=== PATIENT | female | born 1955 | race Hispanic/Latino ===

== ENCOUNTER 2020-08-25 17:27 | Emergency (ER) | payer MEDICARE, OTHER ==
[~2020-08-25] VITALS: Ht 162.6 cm; Wt 72.6 kg
[2020-08-25] MEDS ORDERED: CIPROFLOXACIN 400 MG/D5W 200ML 200 ML IV STA (17:30)
--- NOTE | 2020-08-25 17:32 | Emergency Department Note ---
History of Present Illnes History of Present Illness History of Present Illness This is a 65 year old female brought by daughter for evaluation of dysuria. Patient seen by multiple clinics and has had Rx for macrobid and pyridium Historian: Patient, Family Member Arrival Mode: Car Onset (how long ago): week(s) (1) Radiation: Reports abdomen (suprapubic) Severity: moderate Duration (how long): week(s) (1) Timing of current episode: constant Progression: worsening Chronicity: new Context: Denies recent illness, Denies recent surgery, Denies recent immobilization, Denies recent travel, Denies trauma/injury, Denies new medica tions, Denies hx of DVT/PE, Denies non-compliance w/ medications, Denies other Exacerbating factors: other (palpation) Associated symptoms: Denies denies other symptoms, Denies confusion, Denies chest pain, Denies cough, Denies diaphoresis, Denies fever/chills, Denies headaches, Denies loss of appetite, Denies malaise, Denies nausea/vomiting, Denies rash, Denies seizure, Denies shortness of breath, Denies syncope, Denies weakness, Denies other Previous service: medications given, tests performed Past Medical/Family History Physician Review I have reviewed the patient's past medical and family history. Any updates have been documented here. Past Medical History Recent Fever: No Clinical Suspicion of Infectio: No New/Unexplained Change in Ment: No Past Medical History: Hyperlipedemia Past Surgical History: Hysterectomy Social History Smoking Cessation: Never Smoker Alcohol Use: None Any Illegal Drug Use: No Review of Systems Review of Systems Constitutional: Reports no symptoms EENTM: Reports no symptoms Cardiovascular: Reports no symptoms Respiratory: Reports no symptoms Gastrointestinal: Reports abdominal pain (LLQ) Genitourinary: Reports discharge, Reports dysuria, Reports frequency Musculoskeletal: Reports no symptoms Integumentary: Reports no symptoms Neurological: Reports no symptoms Psychological: Reports no symptoms Endocrine: Reports no symptoms Hematological/Lymphatic: Reports no symptoms Physical Exam Related Data Allergies: Coded Allergies: No Known Allergies (Unverified , 08/25/20) Physical Exam CONSTITUTIONAL Constitutional: Present well-developed, Present well-nourished HENT HENT: Present normocephalic, Present atraumatic, Present oropharynx clear/m oist, Present nose normal HENT L/R: Present left ext ear normal, Present right ext ear normal EYES Eyes: Reports PERRL, Reports conjunctivae normal NECK Neck: Present ROM normal PULMONARY Pulmonary: Present effort normal, Present breath sounds normal CARDIOVASCULAR Cardiovascular: Present regular rhythm, Present heart sounds normal, Present capillary refill normal, Present normal rate GASTROINTESTINAL Abdominal: Present soft, Present tender (LLQ) GENITOURINARY Genitourinary: Present exam deferred SKIN Skin: Present warm, Present dry MUSCULOSKELETAL Musculoskeletal: Present ROM normal NEUROLOGICAL Neurological: Present alert, Present oriented x 3, Present no gross motor or sensory deficits PSYCHOLOGICAL Psychological: Present mood/affect normal, Present judgement normal Results Laboratory Lab results reviewed: Yes Laboratory comments Laboratory Tests Test 08/25/20 17:49 08/25/20 17:45 White Blood Count 6.70 x10e3/uL (4.8-10.8) Red Blood Count 4.55 x10e6/uL (3.6-5.1) Hemoglobin 13.2 g/dL (12.0-16.0) Hematocrit 41.2 % (34.2-44.1) Mean Corpuscular Volume 90.5 fL (81-99) Mean Corpuscular Hemoglobin 29.0 pg (28-32) Mean Corpuscular Hemoglobin Concent 32.0 g/dL (31-35) Red Cell Distribution Width 13.0 % (11.7-14.4) Platelet Count 241 x10e3/uL (140-360) Neutrophils (%) (Auto) 66.9 % (38.7-80.0) Lymphocytes (%) (Auto) 23.6 % (18.0-39.1) Monocytes (%) (Auto) 7.8 % (4.4-11.3) Eosinophils (%) (Auto) 0.7 % (0.0-6.0) Basophils (%) (Auto) 0.7 % (0.0-1.0) Neutrophils # (Auto) 4.5 (2.1-6.9) Lymphocytes # (Auto) 1.6 (1.0-3.2) Monocytes # (Auto) 0.5 (0.2-0.8) Eosinophils # (Auto) 0.1 (0.0-0.4) Basophils # (Auto) 0.1 (0.0-0.1) Absolute Immature Granulocyte (auto 0.02 x10e3/uL (0-0.1) Urine Color Yellow (YELLOW) Urine Clarity Hazy (CLEAR) Urine pH 5.5 (5 - 7) Urine Specific Bradley >=1.030 (1.010-1.025) Urine Protein Negative (NEGATIVE) Urine Glucose (UA) Negative (NEGATIVE) Urine Ketones Negative (NEGATIVE) Urine Blood Trace (NEGATIVE) Urine Nitrite Positive (NEGATIVE) Urine Bilirubin Negative (NEGATIVE) Urine Urobilinogen 0.2 mg/dL (0.2 - 1) Urine Leukocyte Esterase Negative (NEGATIVE) Urine RBC 6-10 /HPF (0-5) Urine WBC 6-10 /HPF (0-5) Urine Epithelial Cells Few /LPF (NONE) Urine Bacteria Few /HPF (NONE) Sodium Level 138 mmol/L (136-145) Potassium Level 3.9 mmol/L (3.5-5.1) Chloride Level 106 mmol/L (98-107) Carbon Dioxide Level 23 mmol/L (22-29) Anion Gap 12.9 mmol/L (8-16) Blood Urea Nitrogen 15 mg/dL (7-26) Creatinine 0.88 mg/dL (0.57-1.11) Estimat Glomerular Filtration Rate > 60 ML/MIN (60-) BUN/Creatinine Ratio 17 (6-25) Glucose Level 107 mg/dL (74-118) Calcium Level 8.8 mg/dL (8.4-10.2) Total Bilirubin 0.4 mg/dL (0.2-1.2) Aspartate Amino Transf (AST/SGOT) 16 IU/L (5-34) Alanine Aminotransferase (ALT/SGPT) 11 IU/L (0-55) Alkaline Phosphatase 99 IU/L (40-150) Total Protein 7.6 g/dL (6.5-8.1) Albumin 4.0 g/dL (3.5-5.0) Globulin 3.6 g/dL (2.3-3.5) Albumin/Globulin Ratio 1.1 (0.8-2.0) Bedside Glucose 99 mg/dL (70-120) Imaging Imaging results reviewed: Yes Impressions [place] [address] Patient Name: CLAUDETTE WHITE MR #: [id number] : 1955 Age/Sex: 65/F Req #: [id number] Adm Physician: Ordered by: FER KEITH DO Report #: [id number] Location: ER Room/Bed: Procedure: [id number] CT/CT CHEST W Exam Date: 08/25/20 Exam Time: 1903 REPORT STATUS: Signed EXAM: CT PE Chest, Abdomen and Pelvis WITH contrast INDICATION: ^suprapubic pain ^[id number] ^1903 COMPARISON: None. TECHNIQUE: Chest, abdomen and pelvis were scanned utilizing a multidetector helical scanner from the lung apex to the pubic symphysis after administration of IV contrast. Coronal and sagittal reformations were obtained. Routine protocol was performed. Scan was performed when during portal venous phase. The protocol performed for chest and arterial phase. Portal venous phase for abdomen and pelvis. IV CONTRAST: 100 mL of Isovue 370 ORAL CONTRAST: None COMPLICATIONS: None FINDINGS: LINES and TUBES: None. LUNGS AND AIRWAYS: 7 mm groundglass nodule in the left upper lobe, series 2, image 56. No consolidation. Airways are normal. PLEURA: The pleural spaces are clear. HEART AND MEDIASTINUM: No mediastinal, hilar or axillary lymphadenopathy. The heart is normal in size. There is no pericardial effusion. HEPATOBILIARY: There are multiple scattered too small to characterize hypodensities in the liver, likely benign. No biliary ductal dilation. GALLBLADDER: No radio-opaque stones or sludge. No wall thickening. SPLEEN: No splenomegaly. PANCREAS: No focal masses or ductal dilatation. ADRENALS: No adrenal nodules KIDNEYS/URETERS: Kidneys enhance symmetrically. No hydronephrosis. No cystic or solid mass lesions. No stones. GI TRACT: No abnormal distention, wall thickening, or evidence of bowel obstruction. Appendix is normal. PELVIC ORGANS/BLADDER: Unremarkable. LYMPH NODES: No lymphadenopathy. VESSELS: Unremarkable. PERITONEUM / RETROPERITONEUM: No free air or fluid. BONES: There are degenerative changes in the spine. SOFT TISSUES: Unremarkable. IMPRESSION: 1. No pulmonary emboli. 2. No acute process in the chest, abdomen, and pelvis. 3. 7 mm groundglass nodule in the left upper lobe. Recommend follow-up low-dose chest CT in 6 months. Signed by: Cristino Cason MD on 08/25/2020 7:53 PM Dictated By: CRISTINO CASON MD 51 Transcribed By: AFRICA on 08/25/201952 COPY TO: FER KEITH DO~ Assessment & Plan Medical Decision Making MDM Diff Dx : UTI, pyelonephritis, Cancer, kidney stone, COVID-19 URi, PE patient with oxygen saturation of 93% on RA, considered pulmonary embolus and atypical presentation for COVID-19 infection Assessment & Plan Final Impression: (1) UTI (urinary tract infection) (2) Hypoxia FER KEITH DO Aug 25, 2020 17:32
--- OUTSIDE RECORDS SUMMARY | 2020-08-25 17:59 | XMS REPORT | Continuity of Care Document ---
Author Author Masterseek ExchangeCLAUDETTE ESCAPESwithYOU Information [place] Address Unknown Phone Unavailable Care Team Providers Care Extrusion Engineer Name Role Phone ESCAPESwithYOU Information Exchange Unavailable Un available Problems Problem Status Onset Date Classification Date Reported Comments Source Headache 03/27/2018 [facility] CHRONIC HEADACHE Active 12/08/2017 [facility] MENOPAUSAL STATE Active 01/21/2016 [facility] Impaired glucose tolerance (disorder) Active 04/23/2015 Problem 01/31/2016 Data migrated from [facility] on . [facility] OTHER SCREENING MAMMOGRAM Acti ve 04/23/2015 Condition 04/25/2015 [facility] PREDIABETES Active 04/23/2015 Condition 04/25/2015 [facility] PREVENTIVE HEALTH CARE Active 02/09/2015 Condition 04/25/2015 [facility] SCREENING FOR COLON CANCER Act reji 02/09/2015 Condition 04/25/2015 [facility] SCREENING FOR GLAUCOMA Active 02/09/2015 Condition 04/25/2015 [facility] BODY MASS INDEX 26.0-26.9, ADULT Active 02/09/2015 Condition 04/25/2015 [facility] SKIN LESION Inactive 12/04/2014 Condition 04/25/2015 [facility] 599.72 HEMATURIA, MICROSCOPIC 236.91 MES Active 09/15/2014 [facility] URINARY URGENCY Inactive 08/15/2014 Condition 04/25/2015 [facility] Vitamin D deficiency (disorder) Active 08/01/2014 Problem 10/03/2019 Data migrated from [facility] on 03/03. [facility] Renal mass (finding) Active 08/01/2014 Problem 01/31/2016 Data migrated from [facility] on 03/03. [facility] Steatosis of liver (disorder) Active 08/01/2014 Problem 01/31/2016 Data migrated from [facility] on 03/03. [facility] MICROSCOPIC HEMATURIA Active 08/01/2014 Condition 04/25/2015 [facility] FATTY LIVER Active 08/01/2014 Condition 04/25/2015 [facility] RENAL CYST Active 08/01/2014 Condition 04/25/2015 [facility] VITAMIN D DEFICIENCY Active 08/01/2014 Condition 04/25/2015 [facility] Impaired fasting glycaemia (disorder) Active 02/17/2014 Problem 01/31/2016 Data migrated from [employer] on 03/03. [facility] IMPAIRED FASTING GLUCOSE Inact reji 02/17/2014 Condition 04/25/2015 [facility] 627.9MENOPAUSAL AND POSTMENOPAUSAL DISOR Active 01/27/2014 [facility] PHYSICAL EXAMINATION Inactive 01/20/2014 Condition 04/25/2015 [facility] SCREENING, COLON CANCER Active 01/20/2014 Condition 04/25/2015 [facility] 789.00=ABDOMINAL PAIN Active 07/12/2013 [facility] MIGRAINE HEADACHE Active 06/24/2013 Condition 04/25/2015 [facility] ABDOMINAL PAIN Inactive 06/24/2013 Condition 04/25/2015 [facility] Gastritis (disorder) Resolved 10/05/1959 Problem 10/03/2019 Data migrated from [employer] on . Data migrated from [employer] on 03/06/15. [facility] Gastroesophageal reflux disease (disorder) Active 10/05/1959 Problem 10/03/2019 Data migrated from [employer] on 04/11/15. Data migrated from [employer] on 03/06/15. [facility] Hyperlipidemia (disorder) Acti ve 10/05/1959 Problem 04/02/2018 Data migrated from [employer] on 03/03. [facility] HYPERLIPIDEMIA Active 10/05/1959 Condition 04/25/2015 [facility] GASTRITIS Active 10/05/1959 Condition 08/15/2014 [facility] GERD Active 10/05/1959 Condition 04/25/2015 [facility] Acute bronchitis (disorder) Re solved Problem Data migrated from [employer] on 04/21. [facility] Acute gastritis (disorder) Res olved Problem Data migrated from [employer] on 04/21. [facility] Acute sinusitis (disorder) Res olved Problem Data migrated from [employer] on 04/20. [facility] Chronic headache disorder (disorder) Active Problem [facility] Insomnia (disorder) Active Problem 10/03/2019 [facility] Prediabetes (finding) Active Problem 10/03/2019 [facility] Breast lump (finding) Active Problem 10/03/2019 [facility] Mammography abnormal (finding) Active Problem [facility] Mixed hyperlipidemia (disorder) Active Problem [facility] Hypertensive disorder, systemic arterial (disorder) Active Problem 03/12/2018 [facility] Simple obesity (disorder) Acti ve Problem [facility] Cerebral ischemia 03/27/2018 [facility] Chronic sinusitis, unspecified 03/27/2018 [facility] UNSPECIFIED MENOPAUSAL&POSTMENOPAUSAL DISORDER Inactive Condition 04/25/2015 [facility] ACUTE URIS OF UNSPECIFIED SITE Inactive Condition 0 04/25/2015 [facility] ACUTE BRONCHITIS Inactive Condition 04/25/2015 [facility] Medications Medication Details Route Status Patient Instructions Ordering Provider Order Date Source Vitamin D2 50,000 intl units oral capsule = 1 cap, PO, qWeek, # 12 unknown unit, Pharmacy: [facility]/pharmacy #6000 Active 06/14/2019 [facility] atorvastatin 20 mg oral tablet = 1 tab, PO, Bedtime, # 90 tab, Pharmacy: [facility]/pharmacy #6000 Active 06/14/2019 [facility] Ergocalciferol 22415 UNT Oral Capsule 50,000 IntlUnit = 1 cap, PO, qWeek, # 12 cap, 1 Refill(s), Pharmacy: [facility]/pharmacy #6000 Active 12/17/2018 [facility] Esomeprazole 40 MG Enteric Coated Capsule 40 mg = 1 cap, PO, Daily, # 90 cap, 0 Refill(s), Pharmacy: [facility]/pharmacy #6000 Active 03/29/2018 [facility] Trazodone Hydrochloride 50 MG Oral Tablet 50 mg = 1 tab, PO, Bedtime, with food, # 30 tab, 1 Refill(s), Pharmacy: [facility]/pharmacy #6000 Active 12/04/2017 [facility] losartan 25 mg oral tablet 25 mg = 1 tab, PO, Daily, # 30 tab, 1 Refill(s), Pharmacy: [facility]/pharmacy #6000 Active 12/04/2017 [facility] atorvastatin 20 mg oral tablet 20 mg = 1 tab, PO, Bedtime, # 90 tab, 1 Refill(s), Pharmacy: [facility]/pharmacy #6000 Active 08/21/2017 [facility] CALCIUM + VITAMIN D Take one t ablet by mouth daily. Active 02/09/2015 [facility] CIPROFLOXACIN HCL 500 MG TABS Take one tablet every 12 hours Active 08/15/2014 [facility] FEXOFENADINE HCL 180 MG TABS T karolyn one tablet by mouth once a day as needed No Longe r Active 08/15/2014 [facility] CIPROFLOXACIN HCL 500 MG TABS Take one tablet every 12 hours No Longer Active 08/15/2014 [facility] CIPROFLOXACIN HCL 500 MG TABS Take one tablet every 12 hours No Longer Active 08/15/2014 [facility] VITAMIN D 2000 UNIT CAPS Take one tablet by mouth once a day No Longer Active 08/04/2014 [facility] NEXIUM 40 MG CPDR 1 tab by wilder th daily as needed No Longer Active 06/24/2013 [facility] PATANOL 0.1 % SOLN 1 drop in b oth eyes every 12 hours No Longer Active 06/24/2013 [facility] ATORVASTATIN CALCIUM 10 MG TABS 1 tab by mouth at bedtime No Longer Active 06/24/2013 [facility] LIPITOR 10 MG TABS 1 tab by mo uth at bedtime Active 06/24/2013 [facility] NEXIUM 40 MG CPDR 1 tab by wilder th daily as needed No Longer Active 06/24/2013 [facility] ATORVASTATIN CALCIUM 10 MG TABS 1 tab by mouth at bedtime No Longer Active 06/24/2013 [facility] LIPITOR 10 MG TABS 1 tab by mo uth at bedtime Active 06/24/2013 [facility] NEXIUM 40 MG CPDR 1 tab by wilder th daily as needed No Longer Active 06/24/2013 [facility] CEFPROZIL 500 MG TABS 1 tab by mouth every 12 hours No Longer Active 03/01/2013 [facility] ALPRAZOLAM 0.25 MG TABS 1 tab by mouth daily as needed No Longer Active 03/01/2013 [facility] CEFPROZIL 500 MG TABS 1 tab by mouth every 12 hours No Longer Active 03/01/2013 [facility] ALPRAZOLAM 0.25 MG TABS 1 tab by mouth daily as needed No Longer Active 03/01/2013 [facility] ALPRAZOLAM 0.25 MG TABS 1 tab by mouth daily as needed No Longer Active 03/01/2013 [facility] Allergies, Adverse Reactions, Alerts Substance Category Reaction Severity Reaction type Status Date Reported Comments Source No Known Medication Allergies Assertion Drug aller gy [facility] Immunizations Immunization Date Given Site Status Last Updated Comments Source influenza virus vaccine, inactivated<sup>1</sup> 08/12/2018 Left Deltoid completed [facility] Result Comment: Patient waited in room ten mins no allergic reaction. [facility] influenza virus vaccine, inactivated<sup>1</sup> 08/06/2017 Left Deltoid completed [facility] Result Comment: Patient waited in room ten mins, no allergic reaction. [facility] influenza virus vaccine, inactivated<sup>2</sup> 08/06/2017 Left Deltoid completed [facility] Result Comment: Patient waited in room ten mins, no allergic reaction. [facility] influenza virus vaccine, inactivated 07/18/2016 Left Deltoid completed [facility]ios [facility] influenza virus vaccine, inactivated 07/25/2015 Left deltoid completed Aaron [facility] influenza immunization (Flu Vax) has been administered 08/01/2014 completed [facility] Hx influenza vaccine-unspecified<sup>3</sup> 08/01/2014 Left Deltoid completed GE Result Comment: fluzone (qu adrivalent) no preservative (>3 yrs.) [[id number]]. Migrated from OBS ; Data migrated from [employer] on 11/06/2015. [facility] Hx influenza vaccine-unspecified<sup>4</sup> 08/01/2014 Left Deltoid completed GE Result Comment: fluzone (qu adrivalent) no preservative (>3 yrs.) [[id number]]. Migrated from OBS ; Data migrated from [employer] on 11/06/2015. [facility] Hx influenza vaccine-unspecified<sup>1</sup> 08/01/2014 Left Deltoid completed GE Result Comment: fluzone (qu adrivalent) no preservative (>3 yrs.) [[id number]]. Migrated from OBS ; Data migrated from [employer] on 11/06/2015. [facility] pneumococcal immunization administered 01/20/2014 completed [facility] pneumococcal 23-valent vaccine<sup>4</sup> 01/20/2014 Left Deltoid completed GE Result Comment: pneumovax 2 3 [[id number]]. Migrated from OBS VIS: Pneumovax 23: 07/10/09 ; Data migrated from [employer] on 11/06/2015. [facility] pneumococcal 23-valent vaccine<sup>5</sup> 01/20/2014 Left Deltoid completed GE Result Comment: pneumovax 2 3 [[id number]]. Migrated from OBS VIS: Pneumovax 23: 07/10/09 ; Data migrated from [employer] on 11/06/2015. [facility] pneumococcal 23-valent vaccine<sup>3</sup> 01/20/2014 Left Deltoid completed GE Result Comment: pneumovax 2 3 [[id number]]. Migrated from OBS VIS: Pneumovax 23: 07/10/09 ; Data migrated from [employer] on 11/06/2015. [facility] influenza immunization (Flu Vax) has been administered 06/24/2013 completed [facility] influenza virus vaccine, inactivated<sup>2</sup> 06/24/2013 Right Deltoid completed GE Result Comment: fluzone (>3 yrs.) [[id number]]. Migrated from OBS ; Data migrated from [employer] on 11/06/2015. [facility] influenza virus vaccine, inactivated<sup>3</sup> 06/24/2013 Right Deltoid completed GE Result Comment: fluzone (>3 yrs.) [[id number]]. Migrated from OBS ; Data migrated from [employer] on 11/06/2015. [facility] influenza immunization (Flu Vax) has been administered 07/01/2012 completed [facility] influenza immunization (Flu Vax) has been administered 08/08/2011 completed [facility] influenza immunization (Flu Vax) has been administered 07/26/2010 completed [facility] influenza immunization (Flu Vax) has been administered 06/29/2009 completed [facility] influenza immunization (Flu Vax) has been administered 07/31/2008 completed [facility] influenza immunization (Flu Vax) has been administered 08/16/2007 [facility] Results Order Name Results Value Reference Range Date Interpretation Comments Source Chemistry HGBA1C 6.3 - 5.6 04/25/2015 [facility] Urinalysis UA COLOR Yellow 04/25/2015 [facility] Urinalysis BACTERIA URN Few 04/25/2015 [facility] Chemistry HEMOCCULT Negative 02/13/2015 [facility] Chemistry HEMOCCULT Negative 02/12/2015 [facility] Chemistry HEMOCCULT Negative 02/10/2015 [facility] Chemistry HGBA1C 6.5 - 5.6 02/09/2015 [facility] Chemistry TSH 1.200 0.360 - 3.740 02/09/2015 [facility] Chemistry CHOLESTEROL 200 - 199 02/09/2015 [facility] Chemistry TRIGLYCERIDE 255 - 149 02/09/2015 [facility] Chemistry HDL 35 >=61 02/09/2015 [facility] Chemistry LDL 114 - 99 02/09/2015 [facility] Chemistry SODIUM 142 MEQ/L 135 - 145 02/09/2015 [facility] Chemistry POTASSIUM 4.1 MEQ/L 3.5 - 5.1 02/09/2015 [facility] Chemistry CREATININE 0.8 0.5 - 1.4 02/09/2015 [facility] BUN 17 7 - 22 02/09/2015 [facility] Chemistry BUN/CREAT 21 6 - 25 02/09/2015 [facility] Chemistry ALBUMIN 3.9 3.5 - 5.0 02/09/2015 [facility] CALCIUM 8.8 8.5 - 10.5 02/09/2015 [facility] Chemistry SGPT (ALT) 33 0 - 65 02/09/2015 [facility] Chemistry SGOT (AST) 29 0 - 37 02/09/2015 [facility] Chemistry ALK PHOS 94 39 - 136 02/09/2015 [facility] Hematology HGB 13.1 12.0 - 16.0 02/09/2015 [facility] Hematology HCT 41.0 36.0 - 48.0 02/09/2015 [facility] Hematology PLATELETS 225 K/CMM 133 - 450 02/09/2015 [facility] Urinalysis UA COLOR Yellow 02/09/2015 [facility] Urinalysis BACTERIA URN Occas ional 02/09/2015 [facility] Urinalysis UA COLOR Yellow 02/09/2015 [facility] Urinalysis UA COLOR Yellow 02/09/2015 [facility] Urinalysis BACTERIA URN Occas ional 02/09/2015 [facility] Urinalysis UA COLOR Yellow 08/15/2014 [facility] Urinalysis BACTERIA URN Occas ional 08/15/2014 [facility] Urinalysis UA COLOR Yellow 08/15/2014 [facility] Urinalysis BACTERIA URN Occas ional 08/15/2014 [facility] Urinalysis UA COLOR Yellow 08/15/2014 [facility] Urinalysis BACTERIA URN Occas ional 08/15/2014 [facility] Urinalysis UA COLOR Yellow 08/15/2014 [facility] Urinalysis BACTERIA URN Occas ional 08/15/2014 [facility] Urinalysis UA COLOR Yellow 08/15/2014 [facility] Urinalysis UA COLOR Yellow 08/15/2014 [facility] Urinalysis UA COLOR Yellow 08/15/2014 [facility] Urinalysis BACTERIA URN Occas ional 08/15/2014 [facility] Urinalysis UA COLOR Yellow 08/15/2014 [facility] Urinalysis BACTERIA URN Occas ional 08/15/2014 [facility] Chemistry HGBA1C 6.3 - 5.6 08/01/2014 [facility] Chemistry CHOLESTEROL 216 - 199 08/01/2014 [facility] Chemistry TRIGLYCERIDE 271 - 149 08/01/2014 [facility] Chemistry HGBA1C 6.3 - 5.6 08/01/2014 [facility] Chemistry CHOLESTEROL 216 - 199 08/01/2014 [facility] Chemistry TRIGLYCERIDE 271 - 149 08/01/2014 [facility] Chemistry HDL 39 >=61 08/01/2014 [facility] Chemistry LDL 123 - 99 08/01/2014 [facility] Chemistry SODIUM 139 MEQ/L 135 - 145 08/01/2014 [facility] Chemistry POTASSIUM 4.0 MEQ/L 3.5 - 5.1 08/01/2014 [facility] Chemistry CREATININE 0.9 0.5 - 1.4 08/01/2014 [facility] Chemistry BUN 14 7 - 22 08/01/2014 [facility] Chemistry BUN/CREAT 16 6 - 25 08/01/2014 [facility] Chemistry ALBUMIN 4.0 3.5 - 5.0 08/01/2014 [facility] Chemistry CALCIUM 9.2 8.5 - 10.5 08/01/2014 [facility] Chemistry SGPT (ALT) 28 0 - 65 08/01/2014 [facility] Chemistry SGOT (AST) 21 0 - 37 08/01/2014 [facility] Chemistry ALK PHOS 103 39 - 136 08/01/2014 [facility] Chemistry SGOT (AST) 21 0 - 37 08/01/2014 [facility] Chemistry ALK PHOS 103 39 - 136 08/01/2014 [facility] Urinalysis UA COLOR Yellow 08/01/2014 [facility] Urinalysis BACTERIA URN Occas ional 08/01/2014 [facility] Urinalysis UA COLOR Yellow 08/01/2014 [facility] Urinalysis BACTERIA URN Occas ional 08/01/2014 [facility] Urinalysis UA COLOR Yellow 08/01/2014 [facility] Urinalysis UA COLOR Yellow 08/01/2014 [facility] Urinalysis BACTERIA URN Occas ional 08/01/2014 [facility] Urinalysis UA COLOR Yellow 08/01/2014 [facility] Urinalysis BACTERIA URN Occas ional 08/01/2014 [facility] Chemistry HEMOCCULT Negative 01/26/2014 [facility] Chemistry HEMOCCULT Negative 01/26/2014 [facility] Chemistry HEMOCCULT Negative 01/26/2014 [facility] Chemistry HEMOCCULT Negative 01/23/2014 [facility] Chemistry HEMOCCULT Negative 01/23/2014 [facility] Chemistry HEMOCCULT Negative 01/23/2014 [facility] Chemistry HEMOCCULT Negative 01/20/2014 [facility] Chemistry HEMOCCULT Negative 01/20/2014 [facility] Chemistry HEMOCCULT Negative 01/20/2014 [facility] Chemistry CHOLESTEROL 209 - 199 01/20/2014 [facility] Chemistry TRIGLYCERIDE 221 - 149 01/20/2014 [facility] Chemistry HDL 36 >=61 01/20/2014 [facility] Chemistry LDL 129 - 99 01/20/2014 [facility] Chemistry SODIUM 140 MEQ/L 135 - 145 01/20/2014 [facility] Chemistry POTASSIUM 3.8 MEQ/L 3.5 - 5.1 01/20/2014 [facility] Chemistry CREATININE 0.7 0.5 - 1.4 01/20/2014 [facility] Chemistry BUN 14 7 - 22 01/20/2014 [facility] Chemistry BUN/CREAT 20 6 - 25 01/20/2014 [facility] Chemistry ALBUMIN 3.9 3.5 - 5.0 01/20/2014 [facility] Chemistry CALCIUM 8.9 8.5 - 10.5 01/20/2014 [facility] Chemistry SGPT (ALT) 26 0 - 65 01/20/2014 [facility] Chemistry SGOT (AST) 18 0 - 37 01/20/2014 [facility] Chemistry ALK PHOS 120 39 - 136 01/20/2014 [facility] Chemistry TSH 2.080 0.360 - 3.740 01/20/2014 [facility] Chemistry CHOLESTEROL 209 - 199 01/20/2014 [facility] Chemistry TRIGLYCERIDE 221 - 149 01/20/2014 [facility] Chemistry HDL 36 >=61 01/20/2014 [facility] Chemistry ALK PHOS 120 39 - 136 01/20/2014 [facility] Chemistry TSH 2.080 0.360 - 3.740 01/20/2014 [facility] Hematology HGB 13.5 12.0 - 16.0 01/20/2014 [facility] Hematology HCT 40.4 36.0 - 48.0 01/20/2014 [facility] Hematology PLATELETS 228 K/CMM 133 - 450 01/20/2014 [facility] Urinalysis UA COLOR Yellow 01/20/2014 [facility] Urinalysis BACTERIA URN Occas ional 01/20/2014 [facility] Urinalysis UA COLOR Yellow 01/20/2014 [facility] Urinalysis BACTERIA URN Occas ional 01/20/2014 [facility] Urinalysis UA COLOR Yellow 01/20/2014 [facility] Urinalysis BACTERIA URN Occas ional 01/20/2014 [facility] Urinalysis UA COLOR Yellow 01/20/2014 [facility] Urinalysis UA COLOR Yellow 01/20/2014 [facility] Urinalysis BACTERIA URN Occas ional 01/20/2014 [facility] Chemistry CHOLESTEROL 207 - 199 06/24/2013 [facility] Chemistry TRIGLYCERIDE 262 - 149 06/24/2013 [facility] Chemistry HDL 35 >=61 06/24/2013 [facility] Chemistry LDL 120 - 99 06/24/2013 [facility] Chemistry SODIUM 143 MEQ/L 135 - 145 06/24/2013 [facility] Chemistry POTASSIUM 4.2 MEQ/L 3.5 - 5.1 06/24/2013 [facility] Chemistry CREATININE 0.7 0.5 - 1.4 06/24/2013 [facility] Chemistry BUN 16 7 - 22 06/24/2013 [facility] Chemistry BUN/CREAT 23 6 - 25 06/24/2013 [facility] Chemistry ALBUMIN 4.0 3.5 - 5.0 06/24/2013 [facility] Chemistry CALCIUM 9.0 8.5 - 10.5 06/24/2013 [facility] Chemistry SGPT (ALT) 32 0 - 65 06/24/2013 [facility] Chemistry SGOT (AST) 25 0 - 37 06/24/2013 [facility] Chemistry ALK PHOS 143 39 - 136 06/24/2013 [facility] Chemistry TSH 1.270 0.360 - 3.740 06/24/2013 [facility] Chemistry CHOLESTEROL 207 - 199 06/24/2013 [facility] Chemistry TRIGLYCERIDE 262 - 149 06/24/2013 [facility] Chemistry HDL 35 >=61 06/24/2013 [facility] Chemistry ALK PHOS 143 39 - 136 06/24/2013 [facility] Chemistry TSH 1.270 0.360 - 3.740 06/24/2013 [facility] Hematology HGB 13.6 12.0 - 16.0 06/24/2013 [facility] Hematology HCT 40.9 36.0 - 48.0 06/24/2013 [facility] Hematology PLATELETS 215 K/CMM 133 - 450 06/24/2013 [facility] Urinalysis UA COLOR Yellow 06/24/2013 [facility] Urinalysis UA COLOR Yellow 06/24/2013 [facility] Urinalysis UA COLOR Yellow 06/24/2013 [facility] Urinalysis UA COLOR Yellow 06/24/2013 [facility] Urinalysis UA COLOR Yellow 06/24/2013 [facility] Pathology Reports No Data Provided for This Section Diagnostic Reports Report Value Date Source Brain wo contrast CT STUDY: Kamlesh zelaya wo contrast CT 12/19/2017 7:58 AM CDT Ordering Physician: Erin Mathias MD Patient Name: CLAUDETTE WHITE MR: [id number] : 1955; Age: 62 years y/o Female Clinical Indication: - Left sided head pain x 2 months Comparison: None TECHNIQUE: Multiple contiguous transaxial noncontrast CT images were obtained through the head. Coronal and sagittal reformatted images were prepared. DLP: 745 mGy-cm FINDINGS: BRAIN PARENCHYMA: 1. Mild diffuse age-appropriate atrophy is present associated with mild nonspecific periventricular low attenuation most consistent with old microangiopathic ischemic change. 2. No evidence of acute intracranial he morrhage, mass lesion, mass effect, midline shift, or extra-axial fluid collection. 3. Empty sella. VENTRICLES: The lateral ventricles, third ventricle, fourth ventricle, and basilar cisterns are appropriate for degree of atrophy present. PARANASAL SINUSES: Mild diffuse mucoperiosteal thickening in the ethmoid sinus. The visualized portions of the remaining paranasal sinuses are clear. MASTOIDS: Clear. ORBITS: The visualized portions of the orbits are normal. SOFT TISSUES: No significant abnormality. SKULL: No acute fracture or suspicious osseous lesion. IMPRESSION: 1. Mild diffuse age-appropriate atrophy is present associated with mild nonspecific periventricular low attenuation most consistent with old microangiopathic ischemic change. 2. Mild chronic sinusitis. : [facility] 12/19/2017 [facility] Bone Density Scan BONE DENSITY : HISTORY: Menopausal state. TECHNIQUE: Dual energy x-ray absorptiometry (DEXA) was done over the lumbar spine and left hip. FINDINGS: The total T-score over the lumbar spine is 0.0, consistent with normal bone density. The previous T-score on 02/03/2014 was -0.2, consistent with normal bone density. There has been a 2.6% increase in BMD since the last exam The global T-score over the left hip is 0.7, consistent with normal bone density. The previous T-score was 1.0, consistent with normal bone density. There has been a 4.1% decrease in BMD since the last exam. The focal T-score over the left femoral neck is -0.3, consistent with normal bone density. The BMD is 0.834 g/sq cm. The previous T-score over the left femoral neck was 0.0, consistent with normal bone density in. IMPRESSION: 1. Normal bone density of the lumbar spi ne. 2. Normal global bone density of the lef t hip. 3. Normal focal bone density of the left femoral neck. FOR YOUR INFORMATION: The World Health Organization has established that OSTEOPOROSIS occurs at -2.5 or more standard deviations (T-score) below peak bone mass (T-score on the Hologic report). OSTEOPENIA occurs at -1.0 to -2.5 standard deviations (T-score) below peak bone mass. [id number] 01/28/2016 [facility] Retroperitoneal limited US Nils al ultrasound: Exam reason: 599.72 Microscopic Hematuria See Clinic Indication The right kidney measures 12.1 x 4.0 x 3.9 cm. The left kidney measures 11.0 x 4.4 x 4.7 cm. The kidneys have an otherwise normal sonographic appearance. There is no pelvicaliectasis or solid renal mass noted. The bladder was unremarkable sonographically. Incidental note is made of diffuse increased echogenicity at the liver is noted compatible with fatty infiltration of the liver; however, cirrhosis or chronic hepatitis could have this appearance. IMPRESSION: 1. Essentially normal renal sonogram. 2. Incidental note is made of diffuse in creased echogenicity at the liver is noted compatible with fatty infiltration of the liver; however, cirrhosis or chronic hepatitis could have this appearance. SL:13 10/06/2014 [facility] Abdomen/Pelvis w/wo contrast CT EXAM: CT abdomen and pelvis HISTORY: Abdominal pain. TECHNIQUE: Axial images obtained through the abdomen and pelvis pre- and post-IV contrast. Oral contrast given. Sagittal and coronal reformations obtained. FINDINGS: Abdomen and pelvis: Minimal dependent atelectasis right lung base. Fatty liver. Multiple small, hypodense probable cysts in the liver. Cyst in the right kidney. 1 cm low-attenuation lesion in the lower left kidney demonstrates enhancement but this may be due to partial volume averaging. The spleen, adrenals, gallbladder and pancreas are unremarkable. No bulky adenopathy or free fluid. The bladder is unremarkable. Hysterectomy. Stool is present throughout the colon. Normal appendix. Mild degenerative changes lower lumbar spine. IMPRESSION: 1. No acute findings in the abdomen and pelvis. 2. Fatty liver. 3. Constipation. 4. 1 cm hypodensity in the left kidney m ay be a cyst. A renal ultrasound can confirm. SL:13 07/18/2013 [facility] Consultation Notes No Data Provided for This Section Discharge Summaries No Data Provided for This Section History and Physicals No Data Provided for This Section Vital Signs Vital Sign Value Date Comments Source BMI Calculated 30.51 12/16/2018 [facility] Weight 73.239 12/16/2018 [facility] Height 154.94 cm 12/16/2018 [facility] Respitory Rate 16 12/16/2018 [facility] Heart Rate 67 12/16/2018 [facility] Systolic (mm Hg) 106 12/16/2018 [facility] Diastolic (mm Hg) 66 12/16/2018 [facility] Temperature Oral (F) 97.1 F 12/16/2018 [facility] Height 154.94 cm 08/19/2018 [facility] Weight 71.42 08/19/2018 [facility] BMI Calculated 29.75 08/19/2018 [facility] Respitory Rate 16 08/19/2018 [facility] Temperature Oral (F) 97.1 F 08/19/2018 [facility] Heart Rate 68 08/19/2018 [facility] Systolic (mm Hg) 105 08/19/2018 [facility] Diastolic (mm Hg) 70 08/19/2018 [facility] Respitory Rate 16 03/15/2018 [facility] Temperature Oral (F) 98.1 F 03/15/2018 [facility] Heart Rate 65 03/15/2018 [facility] BMI Calculated 28.78 03/15/2018 [facility] Height 154.94 cm 03/15/2018 [facility] Weight 69.091 03/15/2018 [facility] Systolic (mm Hg) 123 03/15/2018 [facility] Diastolic (mm Hg) 78 03/15/2018 [facility] Systolic (mm Hg) 150 12/04/2017 [facility] Diastolic (mm Hg) 81 12/04/2017 [facility] BMI Calculated 28.04 12/04/2017 [facility] Temperature Oral (F) 96.8 F 12/04/2017 [facility] Respitory Rate 16 12/04/2017 [facility] Heart Rate 63 12/04/2017 [facility] Height 157.48 cm 12/04/2017 [facility] Weight 69.545 12/04/2017 [facility] Systolic (mm Hg) 158 12/04/2017 [facility] Diastolic (mm Hg) 93 12/04/2017 [facility] Weight 68.75 08/21/2017 [facility] BMI Calculated 26.02 08/21/2017 [facility] Height 162.56 cm 08/21/2017 [facility] Systolic (mm Hg) 113 08/21/2017 [facility] Diastolic (mm Hg) 73 08/21/2017 [facility] Temperature Oral (F) 97.6 F 08/21/2017 [facility] Heart Rate 64 08/21/2017 [facility] Respitory Rate 14 08/21/2017 [facility] Height 64 0 04/23/2015 [facility] Weight 152.13 04/23/2015 [facility] Temperature Oral (F) 97.5 F 04/23/2015 [facility] Respitory Rate 14 04/23/2015 [facility] Heart Rate 69 04/23/2015 [facility] Systolic (mm Hg) 130 04/23/2015 [facility] Diastolic (mm Hg) 87 04/23/2015 [facility] Weight 155 02/09/2015 [facility] Height 64 0 02/09/2015 [facility] Temperature Oral (F) 97.8 F 02/09/2015 [facility] Respitory Rate 12 02/09/2015 [facility] Heart Rate 56 02/09/2015 [facility] Systolic (mm Hg) 134 02/09/2015 [facility] Diastolic (mm Hg) 78 02/09/2015 [facility] Height 64 1 10/15/2013 [facility] Weight 152 08/15/2014 [facility] Temperature Oral (F) 97.9 F 08/15/2014 [facility] Respitory Rate 16 08/15/2014 [facility] Heart Rate 73 08/15/2014 [facility] Systolic (mm Hg) 126 08/15/2014 [facility] Diastolic (mm Hg) 77 08/15/2014 [facility] Systolic (mm Hg) 127 08/01/2014 [facility] Diastolic (mm Hg) 81 08/01/2014 [facility] Respitory Rate 16 08/01/2014 [facility] Heart Rate 70 08/01/2014 [facility] Temperature Oral (F) 97.5 F 08/01/2014 [facility] Weight 152 08/01/2014 [facility] Height 64 1 [facility] Weight 151.38 02/17/2014 [facility] Respitory Rate 12 02/17/2014 [facility] Heart Rate 63 02/17/2014 [facility] Systolic (mm Hg) 128 02/17/2014 [facility] Diastolic (mm Hg) 79 02/17/2014 [facility] Weight 150.50 01/20/2014 [facility] Temperature Oral (F) 97.8 F 01/20/2014 [facility] Respitory Rate 12 01/20/2014 [facility] Heart Rate 67 01/20/2014 [facility] Systolic (mm Hg) 138 01/20/2014 [facility] Diastolic (mm Hg) 84 01/20/2014 [facility] Weight 156.50 07/22/2013 [facility] Temperature Oral (F) 97.4 F 07/22/2013 [facility] Heart Rate 56 07/22/2013 [facility] Systolic (mm Hg) 122 07/22/2013 [facility] Diastolic (mm Hg) 77 07/22/2013 [facility] Weight 157 06/24/2013 [facility] Temperature Oral (F) 96.8 F 06/24/2013 [facility] Respitory Rate 16 06/24/2013 [facility] Heart Rate 64 06/24/2013 [facility] Systolic (mm Hg) 111 06/24/2013 [facility] Diastolic (mm Hg) 72 06/24/2013 [facility] Height 64 0 03/01/2013 [facility] Weight 162.2 03/01/2013 [facility] Heart Rate 67 03/01/2013 [facility] Systolic (mm Hg) 134 03/01/2013 [facility] Diastolic (mm Hg) 86 03/01/2013 [facility] Encounters Location Location Details Encounter Type Encounter Number Reason For Visit Attending Provider ADM Date DC Date Status Source [facility] Outpatient [id number] 789.00=ABDOMINAL PAIN PRADEEP CANNON 07/18/2013 [facility] [id number] Erin Mathias MD 08/01/2014 08/01/2014 [facility] Lab Report [id number] Erin Mathias MD 08/02/2014 08/02/2014 [facility] Visit [id number] Erin Mathias MD 08/15/2014 08/15/2014 [facility] Outpatient [id number] Hossein Abdulkadir 10/06/2014 10/07/2014 [facility] Office Visit [id number] Erin Mathias MD 02/09/2015 02/09/2015 [facility] Lab Report [id number] Erin Mathias MD 02/09/2015 02/09/2015 [facility] Lab Report [id number] Erin Mathias MD 02/13/2015 02/13/2015 [facility] Office Visit [id number] Erin Mathias MD 04/23/2015 04/23/2015 [facility] Outpatient [id number] ERIN MATHIAS 04/23/2015 [facility] Lab Report [id number] Erin Mathias MD 04/25/2015 04/25/2015 [facility] Outpatient [id number] NURSE VISIT 07/25/2015 [facility] [id number] ERIN MATHIAS 08/17/2015 Active [facility] [place] Outpatient [id number] ERIN MATHIAS 01/15/2016 Active [facility] Outpatient [id number] Erin Mathias 01/28/2016 01/29/2016 [facility] [id number] ERIN MATHIAS 07/18/2016 Active [facility] [place] Outpatient [id number] ERIN MATHIAS 03/04/2017 Active [facility] Outpatient [id number] ERIN MATHIAS 08/06/2017 Active [facility] [place] Outpatient [id number] ERIN MATHIAS 08/21/2017 [facility] Outpatient [id number] Erin Mathias 08/21/2017 08/22/2017 [facility] Outpatient [id number] ERIN MATHIAS 12/04/2017 [facility] Outpatient [id number] Erin Mathias 12/04/2017 12/05/2017 [facility] Outpatient [id number] Erin Mathias 12/19/2017 12/20/2017 [facility]patient [id number] ERIN MATHIAS 03/15/2018 [facility] Outpatient [id number] Erin Mathias 03/15/2018 03/16/2018 [facility] Phone Message [id number] 03/29/2018 03/31/2018 [facility] Phone Message [id number] 05/14/2018 05/16/2018 [facility] Phone Message [id number] 05/20/2018 05/22/2018 [facility] Outpatient [id number] NURSE VISIT 08/12/2018 Active [facility] [place] [facility] Outpatient [id number] Erin Mathias 08/12/2018 08/13/2018 [facility] Outpatient [id number] ERIN MATHIAS 08/19/2018 Active [facility] [place] [facility] Outpatient [id number] Erin Mathias 08/19/2018 08/20/2018 [facility] Outpatient [id number] ERIN MATHIAS 12/16/2018 Active [facility] [place] [facility] Outpatient [id number] Erin Mathias 12/16/2018 12/17/2018 [facility] Phone Message [id number] 02/23/2019 2019 [facility] Phone Message [id number] 06/14/2019 06/16/2019 [facility] Outpatient [id number] ERIN MATHIAS 07/01/2019 Active [facility] Pre-Reg [id number] Erin Mathias 07/01/2019 07/01/2019 [facility] Phone Message [id number] 09/30/2019 10/02/2019 [facility] Phone Message [id number] 09/30/2019 10/02/2019 [facility] Procedures Procedure Code Date Perfomer Comments Source Mammogram<sup>1, 2, 3, 4, 5, 6</sup> [id number] 06/28/2019 Left breast asymmetry. needs further tests. @ [facility] Left breast ultrasound 05/17/18 done showed Left cyst vs solid mass thta has been stable. Next Left usg in 6 months.Had Left breast usg 11/15/18 stable mass. Follow up in 6 months which would be her yearly mammogram screening.07/01/19 [place] breast usg: f/u [place] 6 months [place] at the [place]06/30/19 Bilateral breast usg is recommended. @ [facility] for malignancy. @ [facility] Mammogram<sup>1, 2</sup> [id number] 05/10/2018 Left breast asymmetry. needs further tests. @ [facility] Left breast ultrasound 05/17/18 done showed Left cyst vs solid mass thta has been stable. Next Left usg in 6 months. [facility] Mammogram<sup>1, 2, 3</sup> [id number] 05/10/2018 Left breast asymmetry. needs further tests. @ [facility] Left breast ultrasound 05/17/18 done showed Left cyst vs solid mass thta has been stable. Next Left usg in 6 months.Had Left breast usg 11/15/18 stable mass. Follow up in 6 months which would be her yearly mammogram screening. [facility] Mammogram<sup>1</sup> [id number] 05/08/2017 at [facility] Next one year [facility] Colonoscopy<sup>2</sup> [id number] 01/06/2017 Internal hemorrhoids next [address] [facility] Endoscopy<sup>3</sup> [id number] 01/06/2017 Gastritis, small hiatal hernia Dr Cole [facility] Colonoscopy<sup>3</sup> [id number] 01/06/2017 Internal hemorrhoids next [address] [facility] Endoscopy<sup>4</sup> [id number] 01/06/2017 Gastritis, small hiatal hernia Dr Cole [facility] Colonoscopy<sup>4</sup> 668132 01/06/2017 Internal hemorrhoids next [address] Cole [facility] Endoscopy<sup>5</sup> [id number] 01/06/2017 Gastritis, small hiatal hernia Dr Cole [facility] Colonoscopy<sup>7</sup> 832474 01/06/2017 Internal hemorrhoids next [address] Cole [facility] Endoscopy<sup>8</sup> [id number] 01/06/2017 Gastritis, small hiatal hernia Dr Cole [facility] Examination of eye [id number] 09/04/2016 [facility] Bone density scan<sup>4</sup> [id number] 01/28/2016 Normal [facility] Bone density scan<sup>5</sup> [id number] 01/28/2016 Normal [facility] Bone density scan<sup>6</sup> 829856249 01/28/2016 Normal [facility] Bone density scan<sup>9</sup> [id number] 01/28/2016 Normal [facility] Bone density scan<sup>1</sup> 187448373 01/28/2016 Normal [facility] Mammogram - screening [id number] 03/05/2015 [facility] Bone density scan [id number] 10/05/2013 [facility] mammogram 68463 04/17/2012 Done [facility] bone density 4002.65 05/29/2011 Done [facility] colonoscopy 66458 09/18/2010 Done [facility] Assessment and Plan No Data Provided for This Section Plan of Care No Data Provided for This Section Social History Social History Date Source Social History TypeResponse Alcohol Current, Type Beer. Frequency: 1-2 times per month. Smoking Status Former smoker; Exposure to Tobacco Smoke None; Cigarette Smoking Last 365 Days No; Reg Smoking Cessation Counseling No entered on: 12/16/18 01/15/2016 [facility] Social History TypeResponse Alcohol Current, Type Beer. Frequency: 1-2 times per month. Smoking Status Former smoker; Exposure to Tobacco Smoke None; Cigarette Smoking Last 365 Days No; Reg Smoking Cessation Counseling No entered on: 03/15/18 01/15/2016 [facility] Family History No Data Provided for This Section Advance Directives No Data Provided for This Section Functional Status No Data Provided for This Section
--- OUTSIDE RECORDS SUMMARY | 2020-08-25 17:59 | XMS REPORT | Continuity of Care Document ---
Author Author [facility] Organization [facility] Address [address] [place] [address] Phone Unavailable Care Team Providers Care [employer] Title Clerk Name Role Phone Lili Duarte Attphys Hector Panchal Attphys Lili Duarte Admphys Payers Payer Name Policy Type Policy Number Effective Date Expiration Date S ource Problems Condition Name Condition Details Condition Category Status Onset Date Resolution Date Last Treatment Date Treating Clinician Comments Source CHRONIC HEADACHE CO CHAIRMAN NIMESH HEADACHE Active 12/08/2017 [facility] Active 2017-12-08 00:00:00 2017-12-19 07:53:00 Asad Mcconnell MENOPAUSAL STATE [facility] STATE Active 01/21/2016 [facility] Active 2016-01-21 00:00:00 2016-01-28 09:54:00 Asad Mcconnell Impaired glucose tolerance (disorder) Impaired glucose tolerance (disorder) Active 04/23/2015 Problem 01/31/2016 Data migrated from [employer] on 05/09/15. [facility] Problem Active 2015-04-23 00:00: 00 2016-01-31 00:56:10 Asad Mcconnell OTHER SCREENING MAMMOGRAM OTHE R SCREENING MAMMOGRAM Active 04/23/2015 Condition 04/25/2015 [facility] Group Condition Active 2015-04-23 00:00:00 2015-04-25 08:38:00 Asad Mcconnell PREDIABETES PRED IABETES Active 04/23/2015 Condition 04/25/2015 [facility] Condition Active 2015-04-23 00:00:00 2015-04 08:38:00 [facility] PREVENTIVE HEALTH CARE PREV ENTIVE HEALTH CARE Active 02/09/2015 Condition 04/25/2015 [facility] Condition Active 2015-02-09 00:00:00 2015-04-25 08:38:00 [facility] SCREENING FOR COLON CANCER SCR EENING FOR COLON CANCER Active 02/09/2015 Condition 04/25/2015 [facility] Condition Active 2015-02-09 00:00:00 2015-04-25 08:38:00 [facility] SCREENING FOR GLAUCOMA SCRE ENING FOR GLAUCOMA Active 02/09/2015 Condition 04/25/2015 [facility] Condition Active 2015-02-09 00:00:00 2015-04-25 08:38:00 [facility] BODY MASS INDEX 26.0-26.9, ADULT BODY MASS INDEX 26.0- 26.9, ADULT Active 02/09/2015 Condition 04/25/2015 [facility] Condition Active 2015-02-09 00:00:00 2015-04-25 08:38:00 [facility] 599.72 HEMATURIA, MICROSCOPIC 236.91 MES 599.72 HEMATURIA, MICROSCOPIC 236.91 MES Active 09/15/2014 [facility] Active 2014-09-15 00:00:00 2014-10-06 10:20:00 [facility] Vitamin D deficiency (disorder) Vitamin D deficiency (disorder) Active 08/01/2014 Problem 10/03/2019 Data migrated from [employer] on 03/03/15. [facility] Problem Active 2014-08-01 00:0 0:00 2019-10-03 23:43:18 [facility] Renal mass (finding) Kaila l mass (finding) Active 08/01/2014 Problem 01/31/2016 Data migrated from [employer] on 03/03/15. [facility] Active 2014-08-01 00:00:00 2016-01-31 00:56:10 [facility] Steatosis of liver (disorder) Steatosis of liver (disorder) Active 08/01/2014 Problem 01/31/2016 Data migrated from [employer] on 03/03/15. [facility] Active 2014-08-01 00:00:00 2016-01-31 00:56:10 [facility] MICROSCOPIC HEMATURIA MICR OSCOPIC HEMATURIA Active 08/01/2014 Condition 04/25/2015 [facility] Condition Active 2014-08-01 00:00:00 2015-04-25 08:38:00 [facility] FATTY LIVER FATT Y LIVER Active 08/01/2014 Condition 04/25/2015 [facility] Condition Active 2014-08-01 00:00:00 2015-04 08:38:00 [facility] RENAL CYST KAILA L CYST Active 08/01/2014 Condition 04/25/2015 [facility] Condition Active 2014-08-01 00:00:00 2015-04-25 0 8:38:00 [facility] VITAMIN D DEFICIENCY MARGARITO MIN D DEFICIENCY Active 08/01/2014 Condition 04/25/2015 [facility] Condition Active 2014-08-01 00:00:00 2015-04-25 08:38:00 [facility] Impaired fasting glycaemia (disorder) Impaired fasting glycaemia (disorder) Active 02/17/2014 Problem 01/31/2016 Data migrated from [employer] on 03/03/15. [facility] Active 2014-02-17 00:00 :00 2016-01-31 00:56:10 [facility] 627.9MENOPAUSAL AND POSTMENOPAUSAL DISOR 627.9MENOPAUSAL AND POSTMENOPAUSAL DISOR Active 01/27/2014 [facility] Ac tive 2014-01-27 00:00:00 2014-01-30 17:31:00 Craig Mcconnell SCREENING, COLON CANCER SCRE ENING, COLON CANCER Active 01/20/2014 Condition 04/25/2015 [facility] Condition Active 2014-01-20 00:00:00 2015-04-25 08:38:00 [facility] 789.00=ABDOMINAL PAIN 789. 00=ABDOMINAL PAIN Active 07/12/2013 [facility] Active 2013-07-12 00:00:00 2013-07-18 07:35: 00 [facility] MIGRAINE HEADACHE MIGR RONAL HEADACHE Active 06/24/2013 Condition 04/25/2015 [facility] Condition Active 2013-06-24 00:00:00 2015-04-25 08:38:00 [facility] Gastroesophageal reflux disease (disorder) Gastroesophageal reflux disease (disorder) Active [birth year]05/1960 Problem 10/03/2019 Data migrated from [employer] on 04/11/15.Data migrated from [employer] on 03/06/15. [facility] Problem Active 1959-10-05 00:00:00 2019-10-03 23:43:18 [facility] Hyperlipidemia (disorder) Hype rlipidemia (disorder) Active 10/05/1960 Problem 04/02/2018 Data migrated from [employer] on 03/03/15. Medical [facility] Problem Active 1959-10-05 00:00:00 2018-04-02 02:08:39 [facility] HYPERLIPIDEMIA HYPE RLIPIDEMIA Active 10/05/1959 Condition 04/25/2015 [facility] Condition Active 1959-10-05 00:00:00 2015-04-25 08:38:00 [facility] GASTRITIS DAPHNEY RITIS Active 10/05/1960 Condition 08/15/2014 [facility] Condition Active 1959-10-05 00:00:00 2014-08-15 12:51:1 7 [facility] GERD GERD Active 10/05/1960 Condition 04/25/2015 [facility] Condition Active 1959-10-05 00:00:00 2015-04-25 08:38:00 [facility] Cerebral ischemia Cere bral ischemia 03/27/2018 [facility] Problem 2018-03-27 11:19:33 [facility] Chronic sinusitis, unspecified Chronic sinusitis, unspecified 03/27/2018 [facility] Problem 2018-03-27 1 1:19:33 [facility] UNSPECIFIED MENOPAUSAL&POSTMENOPAUSAL DISORDER UNSPECIFIED MENOPAUSAL&POSTMENOPAUSAL DISORDER Inactive Condition 04/25/2015 [facility] Condition Inactive 2015-04-25 08:38:00 [facility] ACUTE URIS OF UNSPECIFIED SITE ACUTE URIS OF UNSPECIFIED SITE Inactive Condition 04/25/2015 [facility] Condition Inactive 2015-04-25 08:38:00 [facility] ACUTE BRONCHITIS ACUT E BRONCHITIS Inactive Condition 04/25/2015 [facility] Condition Inactive 2015-04-25 08:38:00 [facility] Acute bronchitis (disorder) Ac richard bronchitis (disorder) Resolved Problem 10/03/2019 Data migrated from [employer] on 04/21/15. [facility] Problem Resolved 2019-10-03 23:43: 18 [facility] Acute gastritis (disorder) Acu te gastritis (disorder) Resolved Problem 10/03/2019 Data migrated from [employer] on 04/21/15. Medical [facility] Problem Resolved 2019-10-03 23:43: 18 [facility] Acute sinusitis (disorder) Acu te sinusitis (disorder) Resolved Problem 10/03/2019 Data migrated from [employer] on 04/20/15. Medical [facility] Problem Resolved 2019-10-03 23:43: 18 Asad Mcconnell Chronic headache disorder (disorder) Chronic headache disorder (disorder) Active Problem 10/03/2019 [facility] Problem Active 2019-10-03 23:43:18 [facility] Insomnia (disorder) Inso mnia (disorder) Active Problem 10/03/2019 Medical [facility] Problem Active 23:43:18 [facility] Prediabetes (finding) Pred iabetes (finding) Active Problem 10/03/2019 [facility] Problem Active 2019-10-03 23:43:18 [facility] Breast lump (finding) [facility] lump (finding) Active Problem 10/03/2019 [facility] Problem Active 2019-10-03 23: 43:18 [facility] Mammography abnormal (finding) Mammography abnormal (finding) Active Problem 10/03/2019 [facility] Problem Active 2019-10-03 23:43:18 [facility] Mixed hyperlipidemia (disorder) Mixed hyperlipidemia (disorder) Active Problem 10/03/2019 [facility] Problem Active 2019-10-03 23:43:18 [facility] Hypertensive disorder, systemic arterial (disorder) Hypertensive disorder, systemic arterial (disorder) Active Problem 03/12/2018 [facility] Problem Active 2018-03-12 14:16:59 [facility] Simple obesity (disorder) Simp le obesity (disorder) Active Problem 10/03/2019 [facility] Problem Active 2019-10-03 23:43:18 [facility] Headache Head ache 12/25/2017 03/27/2018 [facility] Problem 2017-12-25 03:29:35 2018-03-27 11:19:33 2018-03-27 11:19:33 [facility] History of Past Illness Condition Name Condition Details Condition Category Status Onset Date Resolution Date Last Treatment Date Treating Clinician Comments Source Gastritis (disorder) Daphney ritis (disorder) Resolved 10/05/1959 Problem 10/03/2019 Data migrated from [employer] on 04/11/15.Data migrated from [employer] on 03/06/15. [facility] Problem Resolved 1959-10-05 00:00:00 2019-10-03 23:43:18 2019-10-03 23:43:18 [facility] SKIN LESION SKIN LESION Inactive 12/04/2014 Condition 04/25/2015 [facility] Condition Inactive 2014-12-04 00:00:00 20 18-04-22 08:38:00 2015-04-25 08:38:00 [facility] chani URINARY URGENCY URIN ULISSES URGENCY Inactive 08/15/2014 Condition 04/25/2015 [facility] Condition Inactive 2014-08-15 00: 00:00 2015-04-25 08:38:00 2015-04-25 08:38:00 [facility] IMPAIRED FASTING GLUCOSE IMPA IRED FASTING GLUCOSE Inactive 02/17/2014 Condition 04/25/2015 [facility] Condition Inactive 2014-02-17 00:00:00 2015-04-25 08:38:00 2015-04-25 08:38:00 M ann Mcconnell PHYSICAL EXAMINATION PHYS ICAL EXAMINATION Inactive 01/20/2014 Condition 04/25/2015 [facility] Condition Inactive 2014-01-20 00:00:00 2015-04-25 08:38:00 2015-04-25 08:38:00 [facility] ABDOMINAL PAIN ABDO MARION PAIN Inactive 06/24/2013 Condition 04/25/2015 [facility] Group Condition Inactive 2013-06-24 00: 00:00 2015-04-25 08:38:00 2015-04-25 08:38:00 [facility] Allergies, Adverse Reactions, Alerts Allergy Name Allergy Type Status Severity Reaction(s) Onset Date Inacti ve Date Treating Clinician Comments Source No Known Allergies DA Active U 2020-08-22 00:00:00 [facility] No Known Drug Intolerances DA Active U 2004-11-14 00:00:0 0 [facility] No Known Contrast Allergies DA Active U 2004-11-14 00:00: 00 [facility] No Known Drug Allergies DA Active U 2004-11-14 00:00:00 [facility] No Known Food Allergies DA Active U 2004-11-14 00:00:00 [facility] No Known Other Allergies DA Active U 2004-11-14 00:00:00 [facility] No Known Medication Allergies No Known Medication Allergies Active [facility] Social History Social Habit Start Date Stop Date Quantity Comments Source Social History 2016-01-15 18:47:30 2016-01-15 18:47:30 [facility] Medications Ordered Medication Name Filled Medication Name Start Date Stop Da te Current Medication? Ordering Clinician Indication Dosage Frequency Signature (SIG) Comments Components Source Vitamin D2 50,000 intl units oral capsule 2019-06-14 14:57:22 Yes = 1 cap, PO, qWeek, # 12 unknown unit, [id number] atorvastatin 20 mg oral tablet 2019-06-14 14:57:22 Yes = 1 tab, PO, Bedtime, # 90 tab, [facility] Ergocalciferol [id number] UNT Oral Capsule 2018-12-17 18:32:00 Y es 50,000 IntlUnit = 1 cap, PO, qWeek, # 12 cap, 1 Refill(s), [facility] Esomeprazole 40 MG Enteric Coated Capsule 2018-03-29 15:33:00 Yes 40 mg = 1 cap, PO, Daily, # 90 cap, 0 Refill(s), [facility] Trazodone Hydrochloride 50 MG Oral Tablet 2017-12-04 15:23:00 Yes 50 mg = 1 tab, PO, Bedtime, with food, # 30 tab, 1 Refill(s), [facility] losartan 25 mg oral tablet 2017-12-04 15:21:00 Yes 25 mg = 1 tab, PO, Daily, # 30 tab, 1 Refill(s), [facility] atorvastatin 20 mg oral tablet 2017-08-21 14:40:00 Yes 20 mg = 1 tab, PO, Bedtime, # 90 tab, 1 Refill(s), [facility] CALCIUM + VITAMIN D 2015-02-09 00:00:00 Yes Take one tablet by mouth daily. [facility] CIPROFLOXACIN HCL 500 MG TABS 2014-08-15 00:00:00 Yes Take one tablet every 12 hours [facility] FEXOFENADINE HCL 180 MG TABS 2014-08-15 00:00:00 No Take one tablet by mouth once a day as needed [facility] CIPROFLOXACIN HCL 500 MG TABS 2014-08-15 00:00:00 No Take one tablet every 12 hours [facility] CIPROFLOXACIN HCL 500 MG TABS 2014-08-15 00:00:00 No Take one tablet every 12 hours [facility] VITAMIN D 2000 UNIT CAPS 2014-08-04 00:00:00 No Take one tablet by mouth once a day [facility] NEXIUM 40 MG CPDR 2013-06-24 00:00:00 No 1 tab by mouth daily as needed [facility] PATANOL 0.1 % SOLN 2013-06-24 00:00:00 No 1 drop in both eyes every 12 hours [facility] ATORVASTATIN CALCIUM 10 MG TABS 2013-06-24 00:00:00 No 1 tab by mouth at bedtime [facility] LIPITOR 10 MG TABS 2013-06-24 00:00:00 Yes 1 tab by mouth at bedtime [facility] NEXIUM 40 MG CPDR 2013-06-24 00:00:00 No 1 tab by mouth daily as needed [facility] ATORVASTATIN CALCIUM 10 MG TABS 2013-06-24 00:00:00 No 1 tab by mouth at bedtime [facility] LIPITOR 10 MG TABS 2013-06-24 00:00:00 Yes 1 tab by mouth at bedtime [facility] NEXIUM 40 MG CPDR 2013-06-24 00:00:00 No 1 tab by mouth daily as needed [facility] CEFPROZIL 500 MG TABS 2013-03-01 00:00:00 No 1 tab by mouth every 12 hours [facility] ALPRAZOLAM 0.25 MG TABS 2013-03-01 00:00:00 No 1 tab by mouth daily as needed [facility] CEFPROZIL 500 MG TABS 2013-03-01 00:00:00 No 1 tab by mouth every 12 hours [facility] ALPRAZOLAM 0.25 MG TABS 2013-03-01 00:00:00 No 1 tab by mouth daily as needed [facility] ALPRAZOLAM 0.25 MG TABS 2013-03-01 00:00:00 No 1 tab by mouth daily as needed [facility] Vital Signs Vital Name Observation Time Observation Value Comments Source BMI Calculated 2018-12-16 12:43:00 Sheri Gabriel Weight 2018-12-16 12:43:00 [facility] Height 2018-12-16 12:43:00 154.94 cm [facility] Respitory Rate 2018-12-16 12:43:00 [facility] Heart Rate 2018-12-16 12:43:00 [facility] Systolic (mm Hg) 2018-12-16 12:43:00 [facility] Diastolic (mm Hg) 2018-12-16 12:43:00 [facility] Temperature Oral (F) 2018-12-16 12:43:00 97.1 F [facility] Height 2018-08-19 13:46:00 154.94 cm [facility] Weight 2018-08-19 13:46:00 [facility] BMI Calculated 2018-08-19 13:46:00 [facility] Respitory Rate 2018-08-19 13:46:00 [facility] Temperature Oral (F) 2018-08-19 13:46:00 97.1 F [facility] Heart Rate 2018-08-19 13:46:00 [facility] Systolic (mm Hg) 2018-08-19 13:46:00 [facility] Diastolic (mm Hg) 2018-08-19 13:46:00 [facility] Respitory Rate 2018-03-15 12:39:00 [facility] Temperature Oral (F) 2018-03-15 12:39:00 98.1 F [facility] Heart Rate 2018-03-15 12:39:00 [facility] BMI Calculated 2018-03-15 12:39:00 [facility] Height 2018-03-15 12:39:00 154.94 cm [facility] Weight 2018-03-15 12:39:00 [facility] Systolic (mm Hg) 2018-03-15 12:39:00 [facility] Diastolic (mm Hg) 2018-03-15 12:39:00 [facility] Systolic (mm Hg) 2017-12-04 18:58:00 [facility] Diastolic (mm Hg) 2017-12-04 18:58:00 [facility] BMI Calculated 2017-12-04 14:31:00 [facility] Temperature Oral (F) 2017-12-04 14:31:00 96.8 F [facility] Respitory Rate 2017-12-04 14:31:00 [facility] Heart Rate 2017-12-04 14:31:00 [facility] Height 2017-12-04 14:31:00 157.48 cm [facility] Weight 2017-12-04 14:31:00 [facility] Systolic (mm Hg) 2017-12-04 14:31:00 [facility] Diastolic (mm Hg) 2017-12-04 14:31:00 [facility] Weight 2017-08-21 13:36:00 [facility] BMI Calculated 2017-08-21 13:36:00 [facility] Height 2017-08-21 13:36:00 162.56 cm [facility] Systolic (mm Hg) 2017-08-21 13:36:00 [facility] Diastolic (mm Hg) 2017-08-21 13:36:00 [facility] Temperature Oral (F) 2017-08-21 13:36:00 97.6 F [facility] Heart Rate 2017-08-21 13:36:00 [facility] Respitory Rate 2017-08-21 13:36:00 [facility] Height 2015-04-23 15:32:41 [facility] Weight 2015-04-23 15:32:41 [facility] Temperature Oral (F) 2015-04-23 15:32:41 97.5 F [facility] Respitory Rate 2015-04-23 15:32:41 [facility] Heart Rate 2015-04-23 15:32:41 [facility] Systolic (mm Hg) 2015-04-23 15:32:41 [facility] Diastolic (mm Hg) 2015-04-23 15:32:41 [facility] Weight 2015-02-09 13:02:11 [facility] Height 2015-02-09 13:02:11 [facility] Temperature Oral (F) 2015-02-09 13:02:11 97.8 F [facility] Respitory Rate 2015-02-09 13:02:11 [facility] Heart Rate 2015-02-09 13:02:11 [facility] Systolic (mm Hg) 2015-02-09 13:02:11 [facility] Diastolic (mm Hg) 2015-02-09 13:02:11 [facility] Height 2014-08-15 18:51:17 [facility] Weight 2014-08-15 18:51:17 [facility] Temperature Oral (F) 2014-08-15 18:51:17 97.9 F [facility] Respitory Rate 2014-08-15 18:51:17 [facility] Heart Rate 2014-08-15 18:51:17 [facility] Systolic (mm Hg) 2014-08-15 18:51:17 [facility] Diastolic (mm Hg) 2014-08-15 18:51:17 [facility] Systolic (mm Hg) 2014-08-01 13:15:41 [facility] Diastolic (mm Hg) 2014-08-01 13:15:41 [facility] Respitory Rate 2014-08-01 13:15:41 [facility] Heart Rate 2014-08-01 13:15:41 [facility] Temperature Oral (F) 2014-08-01 13:15:41 97.5 F [facility] Weight 2014-08-01 13:15:41 [facility] Height 2014-08-01 13:15:41 [facility] Weight 2014-02-17 14:04:51 [facility] Respitory Rate 2014-02-17 14:04:51 [facility] Heart Rate 2014-02-17 14:04:51 [facility] Systolic (mm Hg) 2014-02-17 14:04:51 [facility] Diastolic (mm Hg) 2014-02-17 14:04:51 [facility] Weight 2014-01-20 13:00:01 [facility] Temperature Oral (F) 2014-01-20 13:00:01 97.8 F [facility] Respitory Rate 2014-01-20 13:00:01 [facility] Heart Rate 2014-01-20 13:00:01 [facility] Systolic (mm Hg) 2014-01-20 13:00:01 [facility] Diastolic (mm Hg) 2014-01-20 13:00:01 [facility] Weight 2013-07-22 13:08:32 [facility] Temperature Oral (F) 2013-07-22 13:08:32 97.4 F [facility] Heart Rate 2013-07-22 13:08:32 [facility] Systolic (mm Hg) 2013-07-22 13:08:32 [facility] Diastolic (mm Hg) 2013-07-22 13:08:32 [facility] Weight 2013-06-24 13:06:11 [facility] Temperature Oral (F) 2013-06-24 13:06:11 96.8 F [facility] Respitory Rate 2013-06-24 13:06:11 Zuleikawu al [place] Heart Rate 2013-06-24 13:06:11 [facility] Systolic (mm Hg) 2013-06-24 13:06:11 [facility] Diastolic (mm Hg) 2013-06-24 13:06:11 [facility] Height 2013-03-01 14:19:21 [facility] Weight 2013-03-01 14:19:21 [facility] Heart Rate 2013-03-01 14:19:21 [facility] Systolic (mm Hg) 2013-03-01 14:19:21 [facility] Diastolic (mm Hg) 2013-03-01 14:19:21 [facility] Procedures Procedure Date / Time Performed Performing Clinician [facility] e Mammogram<sup>1, 2, 3, 4, 5, 6</sup> 2019-06-28 05:00:00 [facility] Mammogram<sup>1, 2, 3</sup> 2018-05-10 05:00:00 [facility] Mammogram<sup>1</sup> 2017-05-08 05:00:00 Sheri velásquez [place] Colonoscopy<sup>7</sup> 2017-01-06 05:00:00 [facility] Endoscopy<sup>8</sup> 2017-01-06 05:00:00 Sheri Gabriel Examination of eye 2016-09-04 00:00:00 [facility] Bone density scan<sup>9</sup> 2016-01-28 05:00:00 [facility] Mammogram - screening 2015-03-05 05:00:00 Sheri velásquez [facility] Bone density scan 2013-10-05 00:00:00 [facility] mammogram 2012-04-17 13:38:45 [facility] bone density 2011-05-29 13:38:15 [facility] colonoscopy 2010-09-18 14:37:45 [facility] Encounters Start Date/Time End Date/Time Encounter Type Admission Type [facility] Care Department Encounter ID Source 2019-09-30 14:15:45 2019-10-01 23:59:59 Outpatient [facility] [id number] 2019-09-30 14:13:39 2019-10-01 23:59:59 Outpatient [facility] [id number] 2019-07-01 07:30:00 2019-07-01 07:30:00 Outpatient Erin Duarte [facility] [id number] 2019-06-14 09:45:50 2019-06-15 23:59:59 Outpatient [facility] [id number] 2019-02-23 10:08:42 2019-02-24 23:59:59 Outpatient [facility] [id number] 2018-12-16 07:30:00 2018-12-16 23:59:59 Outpatient Erin Duarte [facility] [id number] 2018-08-19 07:30:00 2018-08-19 23:59:59 Outpatient Erin Duarte [facility] [id number] 2018-08-12 08:15:00 2018-08-12 23:59:59 Outpatient Erin Duarte [facility] [id number] 2018-05-20 14:23:00 2018-05-21 23:59:59 Outpatient [facility] [id number] 2018-05-14 11:20:00 2018-05-15 23:59:59 Outpatient [facility] [id number] 2018-03-29 10:18:00 2018-03-30 23:59:59 Outpatient [facility] [id number] 2018-03-15 07:30:00 2018-03-15 23:59:59 Outpatient Erin Duarte [facility] [id number] 2017-12-19 07:45:00 2017-12-19 23:59:00 Outpatient Erin Duarte [facility] [id number] 2017-12-04 13:15:00 2017-12-04 23:59:59 Outpatient Erin Duarte [facility] [id number] 2017-08-21 07:45:00 2017-08-21 23:59:59 Outpatient Erin Duarte [facility] [id number] 2016-01-28 09:42:00 2016-01-28 23:59:00 Outpatient Erin Duarte [facility] [id number] 2014-10-06 10:11:00 2014-10-06 23:59:00 Outpatient Hossein Panchal [facility] [id number] Results Test Description Test Time Test Comments Results Result Comments Source URINALYSIS COMPLETE 2020-08-22 20:10:00 Test Item UA COLOR (test code = COLU) YELLOW YELLOW UA APPEARANCE (test code = APPU) CLEAR CLEAR UA GLUCOSE DIPSTICK (test code = DGLUU) norm mg/dL NEGATIVE UA BILIRUBIN DIPSTICK (test code = BILU) NEGATIVE mg/dL NEGATIVE UA KETONE DIPSTICK (test code = KETU) neg mg/dL NEGATIVE UA SPECIFIC GRAVITY (test code = SGU) 1.015 1.001-1.035 UA BLOOD DIPSTICK (test code = JORDAN) 25 (1+) Bam/uL NEGATIVE A UA PH DIPSTICK (test code = FLORI) 6.0 5.0-8.0 UA PROTEIN DIPSTICK (test code = PROU) neg mg/dL Neg-15 UA UROBILINIOGEN DIPSTICK (test code = URO) norm mg/dL 0.0-0.2 UA NITRITE DIPSTICK (test code = DEVIN) NEGATIVE NEGATIVE UA LEUKOCYTE ESTERASE DIPSTICK (test code = LEUU) neg uL NEGA TIVE UA WBC (test code = WBCU) NONE SEEN per HPF 0-5 UA RBC (test code = RBCU) 0-3 per HPF 0-5 UA EPITHELIAL CELLS (test code = EPIU) Few (2-5/hpf) per HPF Few UA BACTERIA (test code = BACU) TRACE per HPF NONE UA MUCUS (test code = MUCU) FEW per LPF NONE-FEW Urine Source? Clean CatchURINALYSIS [id number] 20:05:00* Test Item Value Reference Range Interpretation Comments UA COLOR (test code = COLU) YELLOW YELLOW UA APPEARANCE (test code = APPU) CLEAR CLEAR UA GLUCOSE DIPSTICK (test code = DGLUU) norm mg/dL NEGATIVE UA BILIRUBIN DIPSTICK (test code = BILU) NEGATIVE mg/dL NEGATIVE UA KETONE DIPSTICK (test code = KETU) neg mg/dL NEGATIVE UA SPECIFIC GRAVITY (test code = SGU) 1.015 1.001-1.035 UA BLOOD DIPSTICK (test code = JORDAN) 25 (1+) Bam/uL NEGATIVE A UA PH DIPSTICK (test code = FLORI) 6.0 5.0-8.0 UA PROTEIN DIPSTICK (test code = PROU) neg mg/dL Neg-15 UA UROBILINIOGEN DIPSTICK (test code = URO) norm mg/dL 0.0-0.2 UA NITRITE DIPSTICK (test code = DEVIN) NEGATIVE NEGATIVE UA LEUKOCYTE ESTERASE DIPSTICK (test code = LEUU) neg uL NEGA TIVE UA WBC (test code = WBCU) per HPF 0-5 UA RBC (test code = RBCU) per HPF 0-5 UA EPITHELIAL CELLS (test code = EPIU) per HPF Few UA BACTERIA (test code = BACU) per HPF NONE Urine Source? Clean CatchDIAG MAMM BILATERAL CARMINA CAD [id number] 09:39:18 Name: Peyton : 1955 Sex: F - DIAG MAMM BILATERAL CARMINA CAD DIGITALBILATERAL DIGITAL DIAGNOSTIC MAMMOGRAM 3D/2D WITH CAD: 07/27/2020CLINICAL: 6 Month follow-up. Digital breast tomosynthesis was performed in addition to routine CC and MLO views. Current mammographic images were evaluated by either a [employer] M-Vu or a [employer] CAD (computer aided detection system). Comparison is made to exams dated 06/28/2019 mammogram, 05/17/2018 mammogram, and 05/10/2018 mammogram - [facility]. The tissue of both breasts is heterogeneously dense. This may lo wer the sensitivity of mammography. No suspicious mass, architectural distortio n, malignant type calcification, or lymph node abnormality detected. INCOMPLETE : ADDITIONAL IMAGING EVALUATION NEEDEDBilateral ultrasound pending for additiona l evaluation. - BREAST ULTRASOUND BILATERALULTRASOUND OF BOTH BREASTS AND BOTH AXILLA: 07/27/2020Comparison is made to exams dated 06/28/2019 mammogram, 018 mammogram, and 05/10/2018 mammogram - [facility]-. Real-time u ltrasound of both breasts and both axilla and clinical breast exam were performe d. No abnormalities were seen sonographically in either axilla. Benign solid a nd cystic masses were seen. No evidence of malignancy was seen. Unchanged from the previous studies. IMPRESSION: BENIGN There is no sonographic evidence of ma lignancy. Patient has been informed that she has areas of dense breast tissue t hat could make it difficult to find a small cancer. A screening mammogram and isaac pplemental ultrasound for dense breast tissue is recommended in 1 year.Merari benjamin M.D. dm/:07/27/2020 09:39:18 Avionics Manager: Khalida lanza , [facility]-FWletter sent: BIRADS 1-2 Combo FU Letter Shila mogram BI-RADS: 0 Incomplete: Additional Imaging Evaluation Needed Ultrasound BI -RADS: 2 BenignBREAST ULTRASOUND [id number] 09:39:18 Name: Peyton : 1955 Sex: F - DIAG MAMM BILATERAL CARMINA CAD DIGITALBILATERAL DIGITAL DIAGNOSTIC MAMMOGRAM 3D/2D WITH CAD: 07/27/2020CLINICAL: 6 Month follow-up. Digital breast tomosynthesis was performed in addition to routine CC and MLO views. Current mammographic images were evaluated by either a [employer] M-Vu or a [employer] CAD (computer aided detection system). Comparison is made to exams dated 06/28/2019 mammogram, 05/17/2018 mammogram, and 05/10/2018 mammogram - [facility]-. The tissue of both breasts is heterogeneously dense. This may lo wer the sensitivity of mammography. No suspicious mass, architectural distortio n, malignant type calcification, or lymph node abnormality detected. INCOMPLETE : ADDITIONAL IMAGING EVALUATION NEEDEDBilateral ultrasound pending for additiona l evaluation. - BREAST ULTRASOUND BILATERALULTRASOUND OF BOTH BREASTS AND BOTH AXILLA: 07/27/2020Comparison is made to exams dated 06/28/2019 mammogram, 018 mammogram, and 05/10/2018 mammogram - [facility]-. Real-time u ltrasound of both breasts and both axilla and clinical breast exam were performe d. No abnormalities were seen sonographically in either axilla. Benign solid a nd cystic masses were seen. No evidence of malignancy was seen. Unchanged from the previous studies. IMPRESSION: BENIGN There is no sonographic evidence of ma lignancy. Patient has been informed that she has areas of dense breast tissue t hat could make it difficult to find a small cancer. A screening mammogram and isaac pplemental ultrasound for dense breast tissue is recommended in 1 year.Merari benjamin M.D. dm/:07/27/2020 09:39:18 Avionics Manager: Khalida lanza , [facility]-letter sent: BIRADS 1-2 Combo FU Letter Shila cuevas BI-RADS: 0 Incomplete: Additional Imaging Evaluation Needed Ultrasound BI -RADS: 2 BenignBREAST ULTRASOUND [id number] 09:11:31- BREAST ULTRASOUND BILATERALULTRASOUND OF BOTH BREASTS AND BOTH AXILLA: 12/12/2019CLINICAL: Followup to previous exam. Comparison is made to exams dated 06/28/2019 ultrasound, 06/28/2019 mammogram, 11/15/2018 ultrasound, and 05/17/2018 ultrasound - [facility]-. Color flow and real-time ultrasound of both breasts and both axilla were performed. Hurst scale images of the real-time examination were reviewed. RIGHT BREAST:At the 1 o'clock position, 1 cm from the nipple, there is a benign fibroadenoma currently measuring 6 x 2 x 2 mm. This is decreased in size from the prior study at which time it measured 9 x 3 x 7 mm.At the 6 o'clock position, 2 cm from the nipple, there is a benign fibroadenoma currently measuring 8 x 3 x 4 mm, stable from the prior study at which time it measured 10 x 3 x 5 mm.LEFT BREAST:At the 3 o'clock subareolar position, there is a benign fibroadenoma currently measuring 5 x 5 x 4 mm, stable from the prior study at which time it measured 5 x 4 x 5 mm.At the 11 o'clock subareolar position, there is a benign fibroadenoma currently measuring 6 x 3 x 5 mm, stable from prior study at which time it measured 7 x 6 x 3 mm.No abnormalities were seen sono graphically in either axilla. IMPRESSION: PROBABLY BENIGN - FOLLOW-UP RECOMMEND EDStable appearing probably benign fibroadenoma. Recommend continued short-term surveillance with six-month follow-up ultrasound. Patient will be due for her annual mammogram at that time also.A follow-up mammogram and an ultrasound in 6 months is recommended to demonstrate stability. iEleen Preston M.D. yaq/: 09:11:31 Avionics Manager: Bonny VILLATORO, [facility]: Short Term Follow Up Ultrasound BI-RADS: 3 Probably benign BREAST ULTRASOUND [id number] 10:13:33- BREAST ULTRASOUND BILATERALULTRASOUND OF BOTH BREASTS AND BOTH AXILLA: 06/28/2019CLINICAL: 6 month follow up. Comparison is made to exams dated 11/15/2018 ultrasound and 05/17/2018 ultrasound - [facility]-. Real-time ultrasound of both breasts and both axilla was performed. No abnormalities were seen sonographically in either axilla. Circumscribed hypoechoic solid masses are not ed in the right breast at 6 o'clock 2 cm from the nipple and at 1 o'clock 1 cm f rom the nipple. These were not imaged on 05/13/2016. Masses in the subareolar left breast at 11 and 3 o'clock may be solid or complicated cysts, stable in appeara nce from the last exam of 11/15/2018.The bilateral masses are wider than deeper i n contour and unassociated with abnormal shadowing or increased flow on color Do ppler. IMPRESSION: PROBABLY BENIGN - FOLLOW-UP RECOMMENDEDProbably benign findi ngs. 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 A follow-up ultrasound in 6 mo nths is recommended to demonstrate stability. Kale Ortiz M.D. rb/:06/28/20 19 10:13:33 Avionics Manager: Em VILLATORO, [facility]-le tter sent: Short Term Follow Up Ultrasound BI-RADS: 3 Probably benignSCR MAMM BILATERAL CARMINA CAD [id number] 09:00:15 - SCR MAMM BILATERAL CARMINA CAD DIGITALBILATERAL DIGITAL SCREENING MAMMOGRAM 3D/2D WITH CAD: 06/28/2019CLINICAL: Asymptomatic. Digital breast tomosynthesis was performed in addition to routine CC and MLO views. Current mammographic images were evaluated by either a [employer] M-Vu or a [employer] CAD (computer aided detection system). Comparison is made to exams dated 05/10/2018 mammogram, 05/08/2017 mammogram, and 05/03/2016 mammogram - [facility]-. There are scattered fibroglandular tissues in both breasts. There are benign intramammary nodes in both breasts. There also are benign calcifications in the left breast. No suspicious mass, architectural distortion, malignant type calcification, or lymph node abnormality detected. Breast architecture is stable compared to prior exams.IMPRESSION: BENIGNThere is no mammographic evidence of malignancy. Kale Ortiz M.D. rb/penrad:06/28/2019 09:00:15 Entry: - 06/06 15:54:44Imaging Technologist: Shira VILLATORO, [facility]- Mammogram BI-RADS: 2 BenignBREAST ULTRASOUND [id number] 11:30:30- BREAST ULTRASOUND LEFTULTRASOUND OF LEFT BREAST: 11/15/2018CLINICAL: Followup to previous exam. Comparison is made to exams dated 05/17/2018 ultrasound, 016 ultrasound, and 03/17/2013 ultrasound - [facility]. Color fl ow and real-time ultrasound of the left breast were performed. Hurst scale image s of the real-time examination were reviewed. The breast tissue has scattered f ibroglandular background echotexture. Targeted subareolar ultrasound demonstrat es stable solid oval masses that measure 5 mm at 3 o'clock and another one at 11 o'clock that measures 7 mm. These are unchanged in size and morphology since u ltrasound from 05/2018.IMPRESSION: PROBABLY BENIGN - FOLLOW-UP RECOMMENDEDSubareo lar solid oval masses stable 05/2018 ultrasound and probably stable since 2016 ma mmogram. A follow-up ultrasound in 6 months is recommended to demonstrate one-y ear sonographic stability at the time of patient's screening mammography. Slime Oneill M.D. ss/:11/15/2018 11:30:30 Avionics Manager: Mirta VILLATORO, [facility]-FWletter sent: Short Term Follow Up Ultrasound B I-RADS: 3 Probably fahiuxXmdjzldsg7119-69-45 13:38:006.3[facility] Abfedgygns4457-50-73 13:38:00[facility] RbyvlyoDlhdmljjmp7641-51-79 13:38:00 [facility] LqatvmiHtiuhwvom5873-25-62 16:07:00[facility]Mem[facility] HermannChemistry 2015-02-12 16:06:00[facility] KuklovcDrbptlohq9049-60-58 05:00:00Negative [facility] YmngqrdOfctjkqca3029-96-93 14:24:006.5[facility] 2015-02-09 14:24:001.200[facility] IautlqxRtqcxndrs8614-53-15 14:24:62002Uyzrtpff ZpjrqtpOpzrnbrlz9211-57-79 14:24:19014Kmgvgmdj LmicrxoMizypwdqk4429-59-50 14:24:0035[facility] QupvqjcEhhgbkvzq0314-65-74 14:24:77646Bcnnrfdh [place] Gcjbhxxhw8332-05-27 14:24:63171 MEQ/LMemorial RwcdbblBdgnnqyve6814-38-74 14:24:004.1 MEQ/LMemorial GfjsvsyUsiloovrb2747-95-45 14:24:000.8[facility] Ganvlrvru4496-21-83 14:24:0017[facility] AcqemhuDeakzcicf3642-82-35 14:24:00* Test Item Value Reference Range Interpretation Comments BUN/CREAT (test code = BUN/CREAT) 21 1 03-29 [facility] ZristekEucxifrzg6246-65-52 14:24:003.9[facility] 2015-02-09 14:24:008.8[facility] FygxnppXxnzjjncd5183-00-17 14:24:0033[facility] AuyeglgAmfqqusjn4290-07-90 14:24:0029[facility] IlkaiftOdjeprpxn8494-94-95 14:24:0094[facility] IvmgqloHqgwnkmsmq4825-27-90 14:24:0013.1[facility] Sdbcxfacki4773-19-06 14:24:0041.0[facility] JjjbanjQcressbord4677-91-78 14:24:00 225 K/CMMMemorial BcvnwdxEhzcwsgmwg2747-28-50 14:24:00[facility] Gaclkrixea6459-58-30 14:24:00[facility] ZcmsdxdCjatktfwwy4664-07-61 14:24:00[facility] XqknwaxDjzmbztmdo6748-26-38 14:24:00[facility] TeinwasMbcwbxeyej0374-65-49 14:24:00[facility] HermannUrinalysis 2014-08-15 06:00:00[facility] EcvghzhXjhqhqcxww8927-63-27 06:00:00[facility] ShzddewVsbbgocelh9452-36-75 06:00:00[facility] HermannUrinalysis 2014-08-15 06:00:00[facility] NrduvqnAafuqilpez4163-24-73 06:00:00[facility] BjxvsieVgtrdfnsxg1885-06-32 06:00:00[facility] Zbcuqwfgoe3781-67-38 06:00:00[facility] BxizkajTlbrhmywtl4720-96-21 06:00:00 [facility] ZkwwevsEhjjnwfgij0778-44-72 06:00:00[facility] Hwdzbvbhlx5674-94-00 06:00:00[facility] CunglsnKxmmqbltge7928-83-12 06:00:00 [facility] ZyecgexInxwyhceua2212-45-79 06:00:00[facility] Mjvqqymkuq1246-84-93 06:00:00[facility] CzblotjRzyolrpywy2149-04-91 06:00:00 [facility] QlpdphmDzsixjept5766-09-06 14:07:006.3[facility] Conugvdth9310-51-31 14:07:64419Xvrdqamo YdcgcroKhpbocrxd3812-97-61 14:07:01420 [facility] RxfvrwzBdjhrwalk6580-19-97 14:07:006.3[facility]annChem[facility] 2014-08-01 14:07:64811Udyvxmud DvxsbovLtcipeckz2558-00-61 14:07:10633Heesbwgg GpizztvNzfwluhui3686-16-34 14:07:0039[facility] JahexbpGyhrpwzig1983-61-54 14:07:55145Nsiwdrnb CcpvvuyLnjnvginu3830-03-97 14:07:41790 [facility]/L[facility] Hbltocncg6990-98-70 14:07:004.0 MEQ/LMemorial HwlzkkoTmecespuy4228-58-01 14:07:000.9[facility] BbafvidUhpmrpzcw6811-89-19 14:07:0014[facility] Bifzxacay8343-96-50 14:07:00* Test Item Value Reference Range Interpretation Comments BUN/CREAT (test code = BUN/CREAT) 16 1 6-25 [facility] QdlotktNqqpwlanr5843-91-69 14:07:004.0[facility] 2014-08-01 14:07:009.2[facility] JjdbcwzBfiiidqqc7497-73-46 14:07:0028[facility] EvitvkeDbvdsqquo9026-90-19 14:07:0021Mem[facility] BcmpghyDihneoupu9385-43-50 14:07:13086Eciuqhcn RanlofbPhuryrsty7306-98-77 14:07:0021[facility]esh Dfsjlcptd4268-86-48 14:07:08669Wyuckfcy MolnftuGpuylhsgls6441-02-83 14:07:00 [facility] VnpcumnYejirftfmy5031-91-79 14:07:00[facility]esh Mrqnwczghy5455-17-43 14:07:00[facility] CehcrbtZpdeieeymj7611-13-30 14:07:00 [facility] OqqctwdIxcyngbzic4798-66-74 14:07:00[facility] Nipnwpclsg3495-53-10 14:07:00[facility] ZvvlisuSlsgdkjfpz1966-04-22 14:07:00 [facility] RbucfweUzpnwmugco2928-11-50 14:07:00[facility] Umfktnvkux5761-15-14 14:07:00[facility] BoffigfTzvkjqsve4695-60-92 18:01:00NegativeMemorial IjslqlpAilqylycm4433-42-12 18:01:00[facility] PqsrkfwOnrfvpxep9143-72-20 18:01:00Negative[facility] LltpgiiKegiqxubg8784-12-25 17:59:00[facility] EnuxsgjEjciwewmk5340-89-35 17:59:00[facility] TpmwrgbXkvfeyrpd9943-08-48 17:59:00[facility] TsrjylxCggbzzbgg4424-84-58 17:54:00[facility] WogetogFrutkumch7530-40-79 17:54:00[facility] QkijoxbYywnadlgu0989-78-15 17:54:00Negative[facility] ZiixdaoYijawnxqg3104-06-58 14:37:21955Mfscfioi CmlqwtnGlragsuih3580-11-68 14:37:30832Ihimxssz [place] Mvxyqttcu2655-52-32 14:37:0036[facility] VpshqjjTktgaqstp1581-75-19 14:37:47591 Memorial BrcledeTnnsrpjtt7793-28-70 14:37:74542 MEQ/L[facility]annChemistry 2014-01-20 14:37:003.8 MEQ/LMemorial DcdjrzvEuldivcwu4121-61-52 14:37:000.7 Memorial XuxcepsKtdyrfzxm4315-49-95 14:37:0014[facility] 2014-01-20 14:37:00* Test Item Value Reference Range Interpretation Comments BUN/CREAT (test code = BUN/CREAT) 20 1 6-25 [facility] XbikaqqJnrggtyqz3596-45-91 14:37:003.9[facility] 2014-01-20 14:37:008.9[facility] OwwrgovGsoidgnlu3368-10-49 14:37:0026[facility] MrkxhrfVcyahipeg7856-95-90 14:37:0018Mem[facility] CtnlsczVbxnsrnvt8002-66-77 14:37:02708Rpufqiox XludwerJvnjvzqwm3674-20-08 14:37:002.080[facility] Ixfnnaibc1996-61-82 14:37:33716Dneukmkq WusmtkiFbxhawrxf5724-06-46 14:37:03560 [facility] EijeromThrycgecx2165-52-16 14:37:0036[facility] 2014-01-20 14:37:30793Budnnsvp DhlyjufBzovoptxm9711-37-12 14:37:002.080[facility] DpcabgqQhucfrecdu7400-12-24 14:37:0013.5[facility] FigkhveLzfxezmjft1315-35-64 14:37:0040.4[facility] NttlfcvBtrrxoqgks1204-35-92 14:37:34746 K/CMMMemorial UcencsmCqarbkryef3696-64-04 14:37:00[facility] OcjoqvwWeqlujwwla7580-98-94 14:37:00[facility] WsrxakpFlubcdrwcu8171-32-31 14:37:00[facility] OgmyhvhEghquanuwn1164-92-24 14:37:00[facility] HermannUrinalysis 2014-01-20 14:37:00[facility] DhliuqeOlclcnjaqd5367-59-33 14:37:00[facility] EmuvenbAmtgjgeffn6766-17-01 14:37:00[facility] HermannUrinalysis 2014-01-20 14:37:00[facility] OglklyhPgowwurkzs3242-35-95 14:37:00[facility] AdgsqmyKpgibzddq3335-87-30 14:35:85710Mhfzpxzw HermannChemistry 2013-06-24 14:35:75631Hbnzsfis JzdmdztUzhkgyzms4551-74-94 14:35:0035[facility] OsbwlvmFupgzwqvq4601-20-45 14:35:61520Njgxyagl NuemorgIsbukzctq6454-81-60 14:35:81447 MEQ/LMemorial GnufjkcWtjdcaojz4266-41-36 14:35:004.2 MEQ/LMemorial HgjstieKifmcxxmf8879-68-89 14:35:000.7[facility] TmeydytQmogmzzfm6879-97-51 14:35:0016[facility] DkdwyzyMygnealio8665-30-87 14:35:00* Test Item Value Reference Range Interpretation Comments BUN/CREAT (test code = BUN/CREAT) 23 1 6-25 [facility] OvaktpfChclbbdsz7760-32-77 14:35:004.0[facility] 2013-06-24 14:35:009.0[facility] YnvxkxrHurepxuiu1646-29-02 14:35:0032[facility] KpooyerMkhtatpkj0611-33-26 14:35:0025[facility] OjwovtzCnilwyvtw7129-31-68 14:35:43397Hcdskaua NatizzeMacgsedwq9114-55-77 14:35:001.270[facility] Sywsrhush8955-78-34 14:35:14792Nvuorjjz DdsfklpNugcuazwr4113-01-91 14:35:00511 [facility] AvpvadrSxiyyutke6742-89-44 14:35:0035[facility] 2013-06-24 14:35:79944Owdxenpi WntuwojRwtfavqyp1324-52-14 14:35:001.270[facility] QpmdxxjPgcqzturdk4308-67-20 14:35:0013.6[facility] BdzwvpiUkjvrgpqho8551-67-88 14:35:0040.9[facility] SptebjyZrdsmcksck9652-49-89 14:35:26782 K/CMMMemorial HqhpqjlMlnymosblu7963-77-50 14:35:00[facility] ZycklesCdzgxwoqcy7905-86-84 14:35:00[facility] EsqvwipHxevyxzhtg0294-32-18 14:35:00[facility] FhbuxhbWuersjdrhi1620-73-91 14:35:00[facility] NemnnlkGixhhhetjg9181-31-24 14:35:00[facility] [place]
[2020-08-25] MEDS ORDERED: CIPROFLOXACIN 400 MG/D5W 200ML 200 ML IV ONE (18:06)
[2020-08-25 18:23] LABS: BASOPHILS # (AUTO) 0.1 (0.0-0.1); BASOPHILS % 0.7 % (0.0-1.0); EOSINOPHILS # (AUTO) 0.1 (0.0-0.4); EOSINOPHILS % 0.7 % (0.0-6.0); HEMATOCRIT 41.2 % (34.2-44.1); HEMOGLOBIN 13.2 g/dL (12.0-16.0); LYMPHOCYTES # (AUTO) 1.6 (1.0-3.2); LYMPHOCYTES % 23.6 % (18.0-39.1); MEAN CORPUSCULAR VOLUME 90.5 fL (81-99); MONOCYTES # (AUTO) 0.5 (0.2-0.8); MONOCYTES % 7.8 % (4.4-11.3); NEUTROPHILS # (AUTO) 4.5 (2.1-6.9); NEUTROPHILS % 66.9 % (38.7-80.0); PLATELET COUNT 241 x10e3/uL (140-360); RED BLOOD COUNT 4.55 x10e6/uL (3.6-5.1)
[2020-08-25 18:28] LABS: CLARITY,URINE HAZY (CLEAR); COLOR,URINE YELLOW (YELLOW)
[2020-08-25 18:29] LABS: BILIRUBIN,URINE NEGATIVE (NEGATIVE); KETONES,URINE NEGATIVE (NEGATIVE); LEUKOCYTE ESTERASE ,URINE NEGATIVE (NEGATIVE); NITRITE,URINE POSITIVE (NEGATIVE); PROTEIN,URINE DIPSTICK NEGATIVE (NEGATIVE); URINE UROBILINOGEN 0.2 mg/dL (0.2 - 1)
[2020-08-25 18:30] LABS: BACTERIA,URINE FEW /HPF; EPITHELIAL CELLS,URINE FEW /LPF
[2020-08-25 18:38] LABS: ALANINE AMINOTRANSFERASE 11 IU/L (0-55); ALBUMIN/GLOBULIN RATIO 1.1 (0.8-2.0); ALKALINE PHOSPHATASE 99 IU/L (40-150); ANION GAP 12.9 mmol/L (8-16); BLOOD UREA NITROGEN 15 mg/dL (7-26); BUN/CREATININE RATIO 17 (6-25); CALCIUM 8.8 mg/dL (8.4-10.2); CARBON DIOXIDE 23 mmol/L (22-29); CHLORIDE 106 mmol/L (98-107); CREATININE, SERUM 0.88 mg/dL (0.57-1.11); EST GLOMERULAR FILTRATION RATE > 60 ML/MIN (60-); GLUCOSE 107 mg/dL (74-118); POTASSIUM 3.9 mmol/L (3.5-5.1); SODIUM 138 mmol/L (136-145)
[2020-08-25] MEDS ORDERED: SODIUM CHLORIDE 0.9% 50ML 50 ML ONE (19:01)
[2020-08-25] MEDS ORDERED: IOPAMIDOL 370 MG/ML 200 ML INFUS..BTL INJ ONE (19:01)
--- NOTE | 2020-08-25 19:56 | Diagnostic Imaging Report ---
EXAM: CT PE Chest, Abdomen and Pelvis WITH contrast INDICATION: ^suprapubic pain ^[id number] ^1903 COMPARISON: None. TECHNIQUE: Chest, abdomen and pelvis were scanned utilizing a multidetector helical scanner from the lung apex to the pubic symphysis after administration of IV contrast. Coronal and sagittal reformations were obtained. Routine protocol was performed. Scan was performed when during portal venous phase. The protocol performed for chest and arterial phase. Portal venous phase for abdomen and pelvis. IV CONTRAST: 100 mL of Isovue 370 ORAL CONTRAST: None COMPLICATIONS: None FINDINGS: LINES and TUBES: None. LUNGS AND AIRWAYS: 7 mm groundglass nodule in the left upper lobe, series 2, image 56. No consolidation. Airways are normal. PLEURA: The pleural spaces are clear. HEART AND MEDIASTINUM: No mediastinal, hilar or axillary lymphadenopathy. The heart is normal in size. There is no pericardial effusion. HEPATOBILIARY: There are multiple scattered too small to characterize hypodensities in the liver, likely benign. No biliary ductal dilation. GALLBLADDER: No radio-opaque stones or sludge. No wall thickening. SPLEEN: No splenomegaly. PANCREAS: No focal masses or ductal dilatation. ADRENALS: No adrenal nodules KIDNEYS/URETERS: Kidneys enhance symmetrically. No hydronephrosis. No cystic or solid mass lesions. No stones. GI TRACT: No abnormal distention, wall thickening, or evidence of bowel obstruction. Appendix is normal. PELVIC ORGANS/BLADDER: Unremarkable. LYMPH NODES: No lymphadenopathy. VESSELS: Unremarkable. PERITONEUM / RETROPERITONEUM: No free air or fluid. BONES: There are degenerative changes in the spine. SOFT TISSUES: Unremarkable. IMPRESSION: 1. No pulmonary emboli. 2. No acute process in the chest, abdomen, and pelvis. 3. 7 mm groundglass nodule in the left upper lobe. Recommend follow-up low-dose chest CT in 6 months. Signed by: Apolinar Joseph MD on 08/25/2020 7:53 PM
[2020-08-25 20:26] VITALS: BP 149/82
== END 2020-08-25 20:40 | disposition home or self-care (01) ==
LOC: ER 17:56
DX: R09.02 Hypoxemia (principal); N39.0 Urinary tract infection, site not specified; R10.32 Left lower quadrant pain; E78.5 Hyperlipidemia, unspecified
CPT/HCPCS: 36415; 71260; 74177; 80053; 81001; 82948; 85025; 99284; J0744; Q9967